=== PATIENT | female | born 1975 | race African-American/Black ===

== ENCOUNTER 2018-12-28 10:30 | Emergency (ER) | payer SELFPAY ==
[~2018-12-28] VITALS: Ht 172.7 cm; Wt 102.5 kg
--- OUTSIDE RECORDS SUMMARY | 2018-12-28 10:33 | XMS REPORT | Summary of Care ---
Author Author [facility] Organization [facility] Address Unknown Phone Unavailable Encounter HQ Geoff(FIN) [phone] Date(s): 08/15/18 - 08/15/18 [facility] [address] [place] [address]- [phone] Encounter Diagnosis Acute chest pain (Discharge Diagnosis) - 08/15/18 Discharge Disposition: Home or Self Care Attending Physician: Suraj Campos MD Vital Signs 1 2 3 Most recent to oldest [Reference Range]: 172.72 cm (08/15/18 7:31 AM) Height 98.1 DegF (08/15/18 7:31 AM) Temperature Oral [96.4-99.1 DegF] 160/89 mmHg *HI* (08/15/18 11:15 AM) 144/98 mmHg *HI* (08/15/18 9:42 AM) 159/102 mmHg *HI* (08/15/18 7:31 AM) Blood Pressure [90-140/60-90 mmHg] 31 BRMIN *HI* (08/15/18 11:15 AM) 22 BRMIN *HI* (08/15/18 9:42 AM) 23 BRMIN *HI* (08/15/18 8:36 AM) Respiratory Rate [14-20 BRMIN] 68 bpm (08/15/18 7:31 AM) Peripheral Pulse Rate [60-100 bpm] 107.273 kg (08/15/18 7:31 AM) Weight 35.96 m2 (08/15/18 7:31 AM) Body Mass Index Problem List No data available for this section Allergies, Adverse Reactions, Alerts Substance Reaction Severity Status shellfish1 Moderate Active codeine Active iodine Mild Active 1Patient state she swells up and her airway closes when eating shellfish i.e shrimp and crab Medications GI cocktail (aluminum hydroxide/magnesium hydroxide/lidocaine/simethicone) 30 mL, Route: PO, Drug Form: SUSP, Dosing Weight 107.273, kg, ONCE, STAT, Start date: 08/15/18 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 Cocktail - aluminum hydroxide/magnesium hydroxide/lidocaine/simethic one Start Date: 08/15/18 Stop Date: 08/15/18 Status: Completed ondansetron 4 mg, 2 mL, Route: IVP, Drug form: INJ, ONCE, Dosing Weight 107.273, kg, Priorit y: STAT, Start date: 08/15/18 7:54:00 MODELING TEACHER, Stop date: 08/15/18 7:54:00 MODELING TEACHER Notes: (Same as: Zofran) MEDICATION WASTE Product Size: 4 mgProduct Was samuel: ___ mg Start Date: 08/15/18 Stop Date: 08/15/18 Status: Completed Saline Flush 0.9% 10 mL, Route: IVP, Drug Form: INJ, Dosing Weight 107.273, kg, PRN, PRN Line Flus h, Start date: 08/15/18 7:54:00 MODELING TEACHER, Duration: 30 day, Stop date: 09/14/18 7:53: 00 MODELING TEACHER Notes: (Same as: BD Posiflush) Start Date: 08/15/18 Stop Date: 08/15/18 Status: Discontinued Results ELECTROLYTES Most recent to 1 oldest [Reference Range]: Sodium Lvl [135-145 139 mEq/L mEq/L] (08/15/18 8:54 AM) Potassium Lvl 3.1 mEq/L [3.5-5.1 mEq/L] *LOW* (08/15/18 8:54 AM) Chloride Lvl [95-109 106 mEq/L mEq/L] (08/15/18 8:54 AM) CO2 [24-32 mEq/L] 29 mEq/L (08/15/18 8:54 AM) AGAP [10.0-20.0 7.1 mEq/L mEq/L] *LOW* (08/15/18 8:54 AM) CHEM PANEL Most recent to 1 oldest [Reference Range]: Creatinine Lvl 1.07 mg/dL [0.50-1.40 mg/dL] (08/15/18 8:54 AM) eGFR 74 mL/min/1.73m2 1 *NA* (08/15/18 8:54 AM) BUN [7-22 mg/dL] 7 mg/dL (08/15/18 8:54 AM) B/C Ratio [6-25] 7 (08/15/18 8:54 AM) Glucose Lvl [70-99 126 mg/dL mg/dL] *HI* (08/15/18 8:54 AM) Total Protein 8.3 g/dL [6.4-8.4 g/dL] (08/15/18 8:54 AM) Albumin Lvl [3.5-5.0 3.6 g/dL g/dL] (08/15/18 8:54 AM) Globulin [2.7-4.2 4.7 g/dL g/dL] *HI* (08/15/18 8:54 AM) A/G Ratio [0.7-1.6] 0.8 (08/15/18 8:54 AM) Calcium Lvl 9.0 mg/dL [8.5-10.5 mg/dL] (08/15/18 8:54 AM) ALT [0-65 unit/L] 31 unit/L (08/15/18 8:54 AM) AST [0-37 unit/L] 19 unit/L (08/15/18 8:54 AM) Alk Phos [39-136 108 unit/L unit/L] (08/15/18 8:54 AM) Bili Total [0.2-1.3 0.3 mg/dL mg/dL] (08/15/18 8:54 AM) 1Result Comment: The eGFR is calculated using the CKD-EPI formula. In most young, healthy individuals the eGFR will be >90 mL/min/1.73m2. The eGFR declines with age. An eGFR of 60-89 may be normal in some populations, particularly the elderly, for whom the CKD-EPI formula has not been extensively validated. Use of the eGFR is not recommended in the following populations: Individuals with unstable creatinine concentrations, including patients and those with serious co-morbid conditions. Patients with extremes in muscle mass or diet. The data above are obtained from the National Kidney Disease Education Program ( NKDEP) which additionally recommends that when the eGFR is used in patients with extremes of body mass index for purposes of drug dosing, the eGFR should be mul tiplied by the estimated BMI. CARDIAC ENZYMES Most recent to 1 oldest [Reference Range]: Total CK [12-191 321 unit/L unit/L] *HI* (08/15/18 8:54 AM) Troponin-I <0.02 ng/mL [0.00-0.40 ng/mL] (08/15/18 8:54 AM) HEMATOLOGY Most recent to 1 oldest [Reference Range]: WBC [3.7-10.4 K/CMM] 8.5 K/CMM (08/15/18 8:54 AM) RBC [4.20-5.40 4.88 M/CMM M/CMM] (08/15/18 8:54 AM) Hgb [12.0-16.0 g/dL] 13.0 g/dL (08/15/18 8:54 AM) Hct [36.0-48.0 %] 40.3 % (08/15/18 8:54 AM) MCV [80.0-98.0 fL] 82.6 fL (08/15/18 8:54 AM) MCH [27.0-31.0 pg] 26.6 pg *LOW* (08/15/18 8:54 AM) MCHC [32.0-36.0 32.2 g/dL g/dL] (08/15/18 8:54 AM) RDW [11.5-14.5 %] 19.1 % *HI* (08/15/18 8:54 AM) MPV [7.4-10.4 fL] 9.8 fL (08/15/18 8:54 AM) Platelet [133-450 253 K/CMM K/CMM] (08/15/18 8:54 AM) Segs [45.0-75.0 %] 85.6 % *HI* (08/15/18 8:54 AM) Lymphocytes 10.7 % [20.0-40.0 %] *LOW* (08/15/18 8:54 AM) Monocytes [2.0-12.0 3.1 % %] (08/15/18 8:54 AM) Eosinophils [0.0-4.0 0.1 % %] (08/15/18 8:54 AM) Basophils [0.0-1.0 0.5 % %] (08/15/18 8:54 AM) Neutrophils # 7.3 K/CMM [1.5-8.1 K/CMM] (08/15/18 8:54 AM) Lymphocytes # 0.9 K/CMM [1.0-5.5 K/CMM] *LOW* (08/15/18 8:54 AM) Monocytes # [0.0-0.8 0.3 K/CMM K/CMM] (08/15/18 8:54 AM) Immunizations Given and Recorded Vaccine Date Status Refusal Reason pneumococcal 23-valent vaccine1 07/11/12 Given 1Admin Note: Patient only recalled year of pneumococcal vaccine in 2012 does not remember exact month/day. Procedures No data available for this section Social History Social History Type Response Substance Abuse Use: Current. Type: Marijuana. IV drug use: No. Drug use interferes with work/home: No. Ready to change: No. Household substance abuse concerns: No.1 Employment/School Status: Employed. 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 Alcohol Current, Type Beer, Wine. Previous treatment: None.2 Smoking Status Current every day smoker; Exposure to Tobacco Smoke None; Cigarette Smoking Last 365 Days No; Reg Smoking Cessation Counseling No3 entered on: 08/15/18 1Marijuana everyday use 2Occasional alcohol juse 3Patient state she smokes marijuana everyday Assessment and Plan No data available for this section
--- OUTSIDE RECORDS SUMMARY | 2018-12-28 10:33 | XMS REPORT | Summary of Care ---
Author Author [facility] Organization [facility] Address Unknown Phone Unavailable Encounter HQ Geoff(YOLY) [phone] Date(s): 09/30/17 - 09/30/17 [facility] [address] [place] [address]- Encounter Diagnosis Minor head injury (Discharge Diagnosis) - 09/30/17 Unspecified injury of head, initial encounter (Final) - 10/06/17 Other fall on same level, initial encounter (Final) - Discharge Disposition: Home or Self Care Attending Physician: Herb Rolon MD Vital Signs 1 2 3 Most recent to oldest [Reference Range]: 172.72 cm (09/30/17 10:45 AM) Height 97.9 DegF (09/30/17 12:44 PM) 99.1 DegF (09/30/17 10:45 AM) Temperature Oral [96.4-99.1 DegF] 137/85 mmHg (09/30/17 12:44 PM) 142/97 mmHg *HI* (09/30/17 11:41 AM) 129/83 mmHg (09/30/17 10:45 AM) Blood Pressure [90-140/60-90 mmHg] 18 BRMIN (09/30/17 12:44 PM) 18 BRMIN (09/30/17 11:41 AM) 15 BRMIN (09/30/17 10:45 AM) Respiratory Rate [14-20 BRMIN] 73 bpm (09/30/17 12:44 PM) 71 bpm (09/30/17 11:41 AM) 91 bpm (09/30/17 10:45 AM) Peripheral Pulse Rate [60-100 bpm] 97.727 kg (09/30/17 10:45 AM) Weight 32.76 m2 (09/30/17 10:45 AM) Body Mass Index Problem List No data available for this section Allergies, Adverse Reactions, Alerts Substance Reaction Severity Status shellfish1 Moderate Active codeine Active iodine Mild Active 1Patient state she swells up and her airway closes when eating shellfish i.e shrimp and crab Medications Fioricet 300 mg-50 mg-40 mg oral capsule 1 cap, PO, Q4H, PRN PRN Headache, Do not exceed 6 capsules in 24 hours, X 3 day, # 30 cap, 0 Refill(s) Start Date: 09/30/17 Stop Date: 10/03/17 Status: Completed Results No data available for this section Immunizations Given and Recorded Vaccine Date Status [...] Employment/School Status: Employed. 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 Previous treatment: None.2 Smoking Status Current every day smoker; Exposure to Tobacco Smoke None; Cigarette Smoking Last 365 Days No; Reg Smoking Cessation Counseling No3 entered on: 09/30/17 1Marijuana everyday use 2Occasional alcohol juse 3Patient state she smokes marijuana everyday Assessment and Plan No data available for this section
--- OUTSIDE RECORDS SUMMARY | 2018-12-28 10:33 | XMS REPORT | Continuity of Care Document ---
Author Author [facility] Interface Address Unknown Phone Unavailable Problems Problem Status Onset Date Classification Date Reported Comments Source Acute chest pain 08/15/2018 08/18/[address] [facility] CHEST PAIN,VOMIT Active 08/15/[address] [facility] CHEST PAIN,VOMIT Active 08/15/[address] [facility] Unspecified injury of head, initial encounter 10/07/2017 01/06/[address] [facility] Minor head injury 09/30/2017 01/06/[address] [facility] FALL KNOT ON HEAD Active 09/29/[address] [facility] Discharge Diagnosis: Nausea & vomiting 02/19/2015 02/22/[address] [facility] Discharge Diagnosis: Abdominal discomfort, epigastric 02/19/2015 02/22/[address] [facility] HIGH BLOOD PRESSURE, CHEST PAIN, NUMBNES Active 02/19/[address] [facility] NAUSEA, VOMITING Active 11/11/[address] [facility] CHOLECYSTITIIS; HYPOKALEMIA Active 11/11/[address] [facility] Other fall on same level, initial encounter 01/06/[address] [facility] CHOLECYSTITIS NOS Active [facility] Medications Medication Details Route Status Patient Instructions Ordering Provider Order Date Source GI cocktail (aluminum hydroxide/magnesium hydroxide/lidocaine/simethicone) 30 mL, Route: PO, Drug Form: SUSP, Dosing Weight 107.273, kg, ONCE, STAT, Start date: 08/15/18 7:55:00 CANCELLATION CLERK, Stop date: 08/15/18 7:55:00 CSTNotes: G.I. Cocktail - aluminum hydroxide/magnesium hydroxid e/lidocaine/simethicone Inactive 08/15/[address] [facility] Ondansetron 4 mg, 2 mL, Route: IVP, Drug form: INJ, ONCE, Dosing Weight 107.273, kg, Priority: STAT, Start date: 08/15/18 7:54:00 CANCELLATION CLERK, Stop date: 08/15/18 7:54:00 CSTNotes: (Same as: Madisyn) MEDICATION WASTE Product Size: 4 mg Product Wasted: ___ mg Inactive 08/15/2018 [facility] Saline Flush 0.9% 10 mL, Route: IVP, Drug Form: INJ, Dosing Weight 107.273, kg, PRN, PRN Line Flush, Start date: 08/15/18 7:54:00 CANCELLATION CLERK, Duration: 30 day, Stop date: 09/14/18 7:53:00 CSTNotes: (Same as: BD Posiflush) Inactive 08/15/2018 [facility] Acetaminophen 300 MG / butalbital 50 MG / Caffeine 40 MG Oral Capsule [Fioricet] 1 cap, PO, Q4H, PRN PRN Headache, Do not exceed 6 capsules in 24 hours, X 3 day, # 30 cap, 0 Refill(s) No Longer Active 09/30/2017 [facility] tramadol hydrochloride 50 MG Oral Tablet 50 mg=1 tab, PO, Q6H, PRN Pain, X 5 day, # 20 tab, 0 Refill(s) Active 02/19/2015 [facility] Famotidine 20 MG Oral Tablet [Pepcid] 20 mg=1 tab, PO, BID, # 60 tab, 0 Refill(s) Active 02/19/2015 [facility] Ondansetron 4 MG Oral Tablet [Zofran] 4 mg=1 tab, PO, Q8H, PRN Nausea/vomiting, X 5 day, # 15 tab, 0 Refill(s) Active 02/19/2015 [facility] GI cocktail 30 mL, Route: PO, Drug Form: SUSP, Dosing Weight 73.636, kg, ONCE, STAT, Start date: 02/19/15 14:02:00, Stop date: 02/19/15 14:02:00Notes: G.I. Cocktail=antacid with simethicone 22.5 mL - lidocaine v iscous 7.5 mL Inactive 02/19/2015 [facility] Morphine 4 mg, 1 mL, Route: IVP, Drug form: INJ, ONCE, Dosing Weight 73.636, kg, Priority: STAT, Start date: 02/19/15 11:37:00, Stop date: 02/19/15 11:37:00Notes: (Same as:MORPhine Sulfate) Inactive 02/19/2015 [facility] Albuterol 0.83 MG/ML Inhalant Solution 2.49 mg, 3 mL, Route: NEB, Drug form: SOLN, ONCE, Dosing Weight 73.636, kg, Priority: STAT, Start date: 02/19/15 11:37:00, Stop date: 02/19/15 11:37:00Notes: SEE RT DOCUMENTATION (Same as: Proventil) Inactive 02/19/[address] [facility] Saline Flush 0.9% 10 mL, Route: IVP, Drug Form: INJ, Dosing Weight 73.636, kg, PRN, PRN Line Flush, Start date: 02/19/15 9:24:00, Duration: 30 day, Stop date: 03/21/15 9:23:00Notes: Same as: BD Posiflush Sterile Inactive 02/19/[address] [facility] Sodium Chloride 0.154 MEQ/ML Injectable Solution 1,000 mL, 1000 ml/hr, Infuse Over: 1 hr, Route: IV, 1,000, Drug form: INJ, ONCE, Priority: STAT, Dosing Weight 73.636 kg, Start date: 02/19/15 9:24:00, Duration: 1 doses or times, Stop date: 02/19/15 9:24:00 Inactive 02/19/[address] [facility] Ketorolac 30 mg, 1 mL, Route: IVP, Drug form: INJ, ONCE, Dosing Weight 73.636, kg, Priority: STAT, Start date: 02/19/15 9:24:00, Stop date: 02/19/15 9:24:00Notes: (Same as:Toradol) IV bolus must be given >15 seconds. Give IM administration slowly and deeply into the muscle. Not for use > 4 days MEDICATION WASTE Product Size: 30 mg Product Wasted: ___ mg Inactive 02/19/[address] [facility] Ondansetron 4 mg, 2 mL, Route: IVP, Drug form: INJ, ONCE, Dosing Weight 73.636, kg, Priority: STAT, Start date: 02/19/15 9:24:00, Stop date: 02/19/15 9:24:00Notes: (Same as: Zofran) MEDICATION WASTE Pr oduct Size: 4 mg Product Wasted: ___ mg Inactive 02/19/[address] [facility] Famotidine 20 mg, 2 mL, Route: IVP, Drug form: INJ, ONCE, Dosing Weight 73.636, kg, Priority: STAT, Start date: 02/19/15 9:24:00, Stop date: 02/19/15 9:24:00Notes: (Same as: Pepcid) Can be dilute in 5-10cc NS IVP: Slow IV push over at least 2 minutes. Inactive 02/19/2015 [facility] Dulcolax Laxative 20 mg, 4 tab, Route: PO, Drug form: ECTAB, Daily, Dosing Weight 81.847, kg, Priority: STAT, Start date: 11/13/14 11:47:00, Duration: 30 day, Stop date: 12/13/14 9:00:00Notes: (Same As: Dulcolax, Correct ol) (Do Not Crush) "Do Not Crush" Inactive 11/13/2014 [facility] NS + KCL 20mEq/L 1000ml (Premix) 1000 mL 1,000 mL, Rate: 125 ml/hr, Infuse over: 8 hr, Route: IV, Dosing Weight 78.182 kg, Total Volume: 1,000, Start date: 11/11/14 21:57:00, Duration: 30 day, Stop date: 12/11/14 21:56:00 Inactive 11/12/2014 [facility] Ciprofloxacin 2 MG/ML Injectable Solution 400 mg, 200 mL, Route: IVPB, Drug form: INJ, ABXQ8H, Dosing Weight 78.182, kg, Priority: STAT, Start date: 11/11/14 21:56:00, Duration: 30 day, Stop date: 12/11/14 13:56:00Notes: Do not refrigerate No Longer Active 11/12/2014 [facility] Metronidazole 500 mg, 100 mL, Route: IVPB, Drug form: INJ, ABXQ8H, Dosing Weight 78.182, kg, Priority: STAT, Start date: 11/11/14 21:56:00, Duration: 30 day, Stop date: 12/11/14 13:56:00Notes: (Same as: Flagyl) Avoid alcohol. No Longer Active 11/12/2014 [facility] NS + KCL 40mEq/L 1000ml (Premix) 1,000 mL 1,000 mL, Rate: 125 ml/hr, Infuse over: 8 hr, Route: IV, Dosing Weight 78.182 kg, Total Volume: 1,000, Start date: 11/11/14 18:39:00, Duration: 30 day, Stop date: 12/11/14 18:38:00Notes: PREMIX IV - Do Not Alter No Longer Active 11/11/2014 [facility] Pepcid 20 mg, 2 mL, Route: IVP, Drug form: INJ, [id number], Start date: 11/11/14 18:00:00, Duration: 30 day, Stop date: 12/11/14 6:00:00Notes: (Same as: Pepcid) Can be dilute in 5-10cc NS IVP: Slow IV push ov er at least 2 minutes. No Longer Active 11/11/2014 [facility] Pepcid 10 mg, Route: IV, Q24H, Dosing Weight 78.182, kg, Priority: NOW, Start date: 11/11/14 9:46:00, Duration: 30 day, Stop date: 12/10/14 9:46:00, Special Instruc tions: Inactive 11/11/2014 [facility] Morphine 4 mg, 1 mL, Route: IV, Drug form: INJ, Q4H, Dosing Weight 78.182, kg, PRN Pain Score 6-10, Start date: 11/11/14 9:45:00, Duration: 30 day, Stop date: 12/11/14 9:44:00Notes: (Same as:MORPhine Sulfate) No Longer Active 11/11/2014 [facility] Ondansetron 4 mg, 2 mL, Route: IVP, Drug form: INJ, Q8H, Dosing Weight 78.182, kg, PRN Nausea & Vomiting, Start date: 11/11/14 9:43:00, Duration: 30 day, Stop date: 12/11/14 9:42:00Notes: (Same as: Zofran) MEDICATION WASTE Product Size: 4 mg Product Wasted: ___ mg No Longer Active 11/11/2014 [facility] potassium chloride 40 mEq, 2 tab, Route: PO, Drug form: ERTAB, ONCE, Dosing Weight 78.182, kg, Priority: STAT, Start date: 11/11/14 7:28:00, Stop date: 11/11/14 7:28:00Notes: (Same as: K-Dur 20) "Do Not Crush" With food and full glass of water Inactive 11/11/2014 [facility] Morphine 4 mg, 1 mL, Route: IVP, Drug form: INJ, ONCE, Dosing Weight 78.182, kg, Priority: STAT, Start date: 11/11/14 6:27:00, Stop date: 11/11/14 6:27:00Notes: (Same as:MORPhine Sulfate) Inactive 11/11/2014 [facility] Zofran 4 mg, 2 mL, Route: IVP, Drug form: INJ, ONCE, Dosing Weight 78.182, kg, Start date: 11/11/14 6:20:00, Stop date: 11/11/14 6:20:00Notes: (Same as: Zofran) MEDICATION WASTE Product Size: 4 mg Product Wasted: ___ mg Inactive 11/11/2014 [facility] Sodium Chloride 0.154 MEQ/ML Injectable Solution 1,000 mL, 1,000 ml/hr, Infuse Over: 1 hr, Route: IV, 1,000, Drug form: INJ, ONCE, Priority: STAT, Dosing Weight 78.182 kg, Start date: 11/11/14 6:20:00, Duration: 1 doses or times, Stop date: 11/11/14 6:20:00 Inactive 11/11/2014 [facility] Allergies, Adverse Reactions, Alerts Substance Category Reaction Severity Reaction type Status Date Reported Comments Source shellfish<sup>1</sup> Assertion Moderate Food allergy Active Patient state she swells up and her airway closes when eating shellfish i.e shrimp and crab [facility] codeine Assertion Drug allergy Active [facility] iodine Assertion Mild Drug allergy Active [facility] Immunizations Immunization Date Given Site Status Last Updated Comments Source pneumococcal 23-valent vaccine<sup>1</sup> 07/11/2012 completed [facility] Admin Note: Patient only recalled year of pneumococcal vaccine in 2012 does not remember exact month/day. [facility] Results Order Name Results Value Reference Range Date Interpretation Comments Source CARDIAC ENZYMES Troponin-I null 0.00 - 0.40 08/15/[address] [facility] CARDIAC ENZYMES Total CK 321 unit/L 12 - 191 08/15/[address] [facility] CHEM PANEL B/C Ratio 7 6 - 25 08/15/[address] [facility] CHEM PANEL Globulin 4.7 g/dL 2.7 - 4.2 08/15/[address] [facility] CHEM PANEL A/G Ratio 0.8 0.7 - 1.6 08/15/[address] [facility] CHEM PANEL AGAP 7.1 meq/L 10.0 - 20.0 08/15/[address] [facility] CHEM PANEL eGFR 74 mL/min/1.73m2 08/15/2018 Result Comment: The eGFR is calculated using the [...] from the National Kidney Disease Education Program (NKDEP) which additionally recommends that when the eGFR is used in patients with extremes of body mass index for purposes of drug dosing, the eGFR should be multiplied by the estimated BMI. [facility] CHEM PANEL Bili Total 0.3 mg/dL 0.2 - 1.3 08/15/[address] [facility] CHEM PANEL Calcium Lvl 9.0 mg/dL 8.5 - 10.5 08/15/[address] [facility] CHEM PANEL CO2 29 meq/L 24 - 32 08/15/[address] [facility] CHEM PANEL AST 19 unit/L 0 - 37 08/15/[address] [facility] CHEM PANEL Total Protein 8.3 g/dL 6.4 - 8.4 08/15/[address] [facility] CHEM PANEL Chloride Lvl 106 meq/L 95 - 109 08/15/[address] [facility] CHEM PANEL Albumin Lvl 3.6 g/dL 3.5 - 5.0 08/15/[address] [facility] CHEM PANEL ALT 31 unit/L 0 - 65 08/15/[address] [facility] CHEM PANEL Alk Phos 108 unit/L 39 - 136 08/15/[address] [facility] CHEM PANEL Glucose Lvl 126 mg/dL 70 - 99 08/15/[address] [facility] CHEM PANEL BUN 7 mg/dL 7 - 22 08/15/[address] [facility] CHEM PANEL Creatinine Lvl 1.07 mg/dL 0.50 - 1.40 08/15/[address] [facility] CHEM PANEL Sodium Lvl 139 meq/L 135 - 145 08/15/[address] [facility] CHEM PANEL Potassium Lvl 3.1 meq/L 3.5 - 5.1 08/15/[address] [facility] HEMATOLOGY Hct 40.3 % 36.0 - 48.0 08/15/[address] [facility] HEMATOLOGY RBC 4.88 M/CMM 4.20 - 5.40 08/15/[address] [facility] HEMATOLOGY MCV 82.6 fL 80.0 - 98.0 08/15/[address] [facility] HEMATOLOGY Hgb 13.0 g/dL 12.0 - 16.0 08/15/[address] [facility] HEMATOLOGY MCH 26.6 pg 27.0 - 31.0 08/15/[address] [facility] HEMATOLOGY WBC 8.5 K/CMM 3.7 - 10.4 08/15/[address] [facility] HEMATOLOGY RDW 19.1 % 11.5 - 14.5 08/15/[address] [facility] HEMATOLOGY Platelet 253 K/CMM 133 - 450 08/15/[address] [facility] HEMATOLOGY MCHC 32.2 g/dL 32.0 - 36.0 08/15/[address] [facility] HEMATOLOGY MPV 9.8 fL 7.4 - 10.4 08/15/[address] [facility] HEMATOLOGY Basophils 0.5 % 0.0 - 1.0 08/15/[address] [facility] HEMATOLOGY Lymphocytes # 0.9 K/CMM 1.0 - 5.5 08/15/[address] [facility] HEMATOLOGY Neutrophils # 7.3 K/CMM 1.5 - 8.1 08/15/[address] [facility] HEMATOLOGY Monocytes # 0.3 K/CMM 0.0 - 0.8 08/15/[address] [facility] HEMATOLOGY Eosinophils 0.1 % 0.0 - 4.0 08/15/[address] [facility] HEMATOLOGY Monocytes 3.1 % 2.0 - 12.0 08/15/[address] [facility] HEMATOLOGY Lymphocytes 10.7 % 20.0 - 40.0 08/15/[address] [facility] HEMATOLOGY Segs 85.6 % 45.0 - 75.0 08/15/[address] [facility] Chest 1view DX Chest 1view DX PROCEDURE: Chest, AP on 08/15/2018 at 0800 hours. INDICATION: Chest pain. COMPARISON: Chest radiograph dated 02/19/2015. FINDINGS: Support tubes, catheters, devices: None. There are no visualized pleural effusions. The visualized portions of the lungs are clear with normal pulmonary vasculature. The mediastinal silhouette and gen appear normal. No evidence for an acute bony abnormality. IMPRESSION: 1. No evidence for an acute cardiopulmonary process. SL: [id number] 08/15/2018 - - Read by: Michael Arguelles MD Dictated Date/time: 08/15/18 08:09 Electronically Signed by: Michael Arguelles MD 08/15/18 08:[address] [facility] Spine cervical 2 or 3 view DX Spine cervical 2 or 3 view DX Study: Cervical spine, 3 views Clinical Indication: - neck pain; post fall yesterday Comparison: None FINDINGS: AP, lateral and odontoid images demonstrate a straightened cervical curve. No fracture is evident. Intervertebral disc spaces are maintained. There are tiny marginal osteophytes at C5-C6. Prevertebral soft tissues are normal. IMPRESSION: No acute abnormality. Straightened cervical curve. SL: [id number] 09/30/2017 - - Read by: Gabriel Rajan MD Dictated Date/time: 09/30/17 11:10 Electronically Signed by: Gabriel Rajan MD 09/30/17 11:[address] [facility] Brain wo contrast CT Brain wo contrast CT EXAM: CT BRAIN WITHOUT CONTRAST DATE: 09/30/2017 10:50 AM CDT INDICATION: - headaches/ dizziness ADDITIONAL INFORMATION AND CT DLP: 1029.93 mGy-cm. COMPARISON: None. TECHNIQUE: Routine axial CT images of the brain were obtained. IV contrast: None. FINDINGS: Non-contrast images of the head demonstrate no edema, hemorrhage, mass lesion or other acute intracranial abnormality. Ayala-white matter distinction is preserved. The ventricles are normal. The basal cisterns and sulci are normal in size. Mild chronic inflammatory change of the paranasal sinus. Partial opacification of the mastoid air cells. IMPRESSION: 1. No definite acute infarct or intracranial hemorrhage detected. If there is further concern for intracranial pathology or acute stroke, MRI of the brain may be performed for complete assessment. SL: [id number] 09/30/2017 - - Read by: Chadwick Mcnulty MD Dictated Date/time: 09/30/17 11:02 Electronically Signed by: Chadwick Mcnulty MD 09/30/17 11:[address] [facility] URINE AND STOOL UA Sq Epi Few /LPF Few /LPF 02/19/[address] [facility] URINE AND STOOL UA WBC 0-2 /HPF None Seen /HPF 02/19/[address] [facility] URINE AND STOOL UA RBC 0-2 /HPF 0 - 2 02/19/[address] [facility] URINE AND STOOL UA Bacteria Few /HPF None Seen /HPF 02/19/[address] [facility] URINE AND STOOL UA Nitrite Negative (02/19/15 2:14 PM) Negative 02/19/[address] [facility] URINE AND STOOL UA Leuk Est Negative (02/19/15 2:14 PM) Negative 02/19/[address] [facility] URINE AND STOOL Micro? Performed (02/19/15 2:14 PM) 02/19/[address] [facility] URINE AND STOOL UA Bili Small 2 *ABN* (02/19/15 2:14 PM) Negative 02/19/2015 Result Comment: Interpret positive bilirubin results with caution. Confirmatory testing not possible due to the unavailability of reagent. Correlation with serum chemistry results recommended. [facility] URINE AND STOOL UA Urobilinogen 1.0 EU/dL 0.1 - 1.0 02/19/[address] [facility] URINE AND STOOL UA Blood Trace *ABN* (02/19/15 2:14 PM) Negative 02/19/[address] [facility] URINE AND STOOL UA Protein Trace *ABN* (02/19/15 2:14 PM) Negative 02/19/[address] [facility] URINE AND STOOL UA Glucose Negative (02/19/15 2:14 PM) Negative 02/19/[address] [facility] URINE AND STOOL UA Ketones 40 mg/dL Negative mg/dL 02/19/[address] [facility] URINE AND STOOL UA Mucus None Seen (02/19/15 2:14 PM) None Seen 02/19/[address] [facility] URINE AND STOOL UA Turbidity Clear (02/19/15 2:14 PM) Clear 02/19/[address] [facility] URINE AND STOOL UA Spec Grav 1.025 <=1.030 02/19/[address] [facility] URINE AND STOOL UA pH 6.0 5.0 - 8.0 02/19/[address] [facility] URINE AND STOOL UA Color Yellow *NA* (02/19/15 2:14 PM) Yellow 02/19/[address] [facility] CHEM PANEL eGFR 73 mL/min/1.73m2 02/19/2015 Result Comment: The eGFR is calculated using the [...] from the National Kidney Disease Education Program (NKDEP) which additionally recommends that when the eGFR is used in patients with extremes of body mass index for purposes of drug dosing, the eGFR should be multiplied by the estimated BMI. [facility] CHEM PANEL ALT 26 unit/L 0 - 65 02/19/[address] [facility] CHEM PANEL Albumin Lvl 3.7 g/dL 3.5 - 5.0 02/19/[address] [facility] CHEM PANEL Alk Phos 82 unit/L 39 - 136 02/19/[address] [facility] CHEM PANEL Bili Total 0.6 mg/dL 0.2 - 1.3 02/19/[address] [facility] CHEM PANEL AST 19 unit/L 0 - 37 02/19/[address] [facility] CHEM PANEL Glucose Lvl 85 mg/dL 70 - 99 02/19/[address] [facility] CHEM PANEL Sodium Lvl 141 meq/L 135 - 145 02/19/[address] [facility] CHEM PANEL Creatinine Lvl 1.1 mg/dL 0.5 - 1.4 02/19/[address] [facility] CHEM PANEL BUN 13 mg/dL 7 - 22 02/19/[address] [facility] CHEM PANEL Chloride Lvl 106 meq/L 95 - 109 02/19/[address] [facility] CHEM PANEL CO2 21 meq/L 24 - 32 02/19/[address] [facility] CHEM PANEL Potassium Lvl 3.6 meq/L 3.5 - 5.1 02/19/[address] [facility] CHEM PANEL Total Protein 7.6 g/dL 6.4 - 8.4 02/19/[address] [facility] CHEM PANEL Calcium Lvl 8.8 mg/dL 8.5 - 10.5 02/19/[address] [facility] CHEM PANEL B/C Ratio 12 6 - 25 02/19/[address] [facility] CHEM PANEL Globulin 3.9 g/dL 2.0 - 4.0 02/19/[address] [facility] CHEM PANEL A/G Ratio 0.9 0.7 - 1.6 02/19/[address] [facility] CHEM PANEL AGAP 17.6 meq/L 10.0 - 20.0 02/19/[address] [facility] CHEM PANEL Lipase Lvl 87 unit/L 73 - 393 02/19/[address] [facility] HEMATOLOGY Eosinophils # 0.0 K/CMM 0.0 - 0.5 02/19/[address] [facility] HEMATOLOGY Basophils # 0.1 K/CMM 0.0 - 0.2 02/19/[address] [facility] HEMATOLOGY Monocytes # 0.9 K/CMM 0.0 - 0.8 02/19/[address] [facility] HEMATOLOGY Lymphocytes # 2.0 K/CMM 1.0 - 5.5 02/19/[address] [facility] HEMATOLOGY Basophils 0.8 % 0.0 - 1.0 02/19/[address] [facility] HEMATOLOGY Segs-Bands # 8.3 K/CMM 1.5 - 8.1 02/19/[address] [facility] HEMATOLOGY Monocytes 7.9 % 2.0 - 12.0 02/19/[address] [facility] HEMATOLOGY Eosinophils 0.1 % 0.0 - 4.0 02/19/[address] [facility] HEMATOLOGY Segs 73.3 % 45.0 - 75.0 02/19/[address] [facility] HEMATOLOGY Lymphocytes 17.9 % 20.0 - 40.0 02/19/[address] [facility] HEMATOLOGY MPV 10.7 fL 7.4 - 10.4 02/19/[address] [facility] HEMATOLOGY Platelet 209 K/CMM 133 - 450 02/19/[address] [facility] HEMATOLOGY MCV 85.8 fL 80.0 - 98.0 02/19/[address] [facility] HEMATOLOGY MCH 28.7 pg 27.0 - 31.0 02/19/[address] [facility] HEMATOLOGY MCHC 33.4 g/dL 32.0 - 36.0 02/19/[address] [facility] HEMATOLOGY RDW 17.7 % 11.5 - 14.5 02/19/[address] [facility] HEMATOLOGY WBC 11.4 K/CMM 3.7 - 10.4 02/19/[address] [facility] HEMATOLOGY RBC 4.54 M/CMM 4.20 - 5.40 02/19/[address] [facility] HEMATOLOGY Hgb 13.0 g/dL 12.0 - 16.0 02/19/[address] [facility] HEMATOLOGY Hct 39.0 % 36.0 - 48.0 02/19/[address] [facility] IMMUNOLOGY CDC HIV 4th GEN Negative (02/19/15 10:37 AM) Negative 02/19/[address] [facility] CARDIAC ENZYMES CK-MB INDEX 0.29 0.0 - 2.5 02/19/[address] [facility] CARDIAC ENZYMES CK MB 0.6 ng/mL 0.5 - 3.6 02/19/[address] [facility] CARDIAC ENZYMES Total CK 206 unit/L 12 - 191 02/19/[address] [facility] CARDIAC ENZYMES Troponin-I <0.015 ng/mL 0.00 - 0.40 02/19/[address] [facility] ENDOCRINOLOGY S Preg Negative (02/19/15 10:34 AM) Negative 02/19/[address] [facility] Abdomen acute series w chest 1 view DX Abdomen acute series w chest 1 view DX Acute abdominal series with chest one view: Exam reason: Abdominal pain, acute See Clinic Indication Chest one view demonstrates no acute cardiopulmonary process and no pneumoperitoneum. Abdomen 2 view demonstrates no small bowel dilatation or air-fluid level. The bowel gas pattern is unremarkable. There is no pathologic abdominal calcification noted. Small amount of retained fecal material is present. Vascular calcification pelvis. SL:12 02/19/2015 - - Read by: Rusty Liz MD Dictated Date/time: 02/19/15 10:09 Electronically Signed by: Rusty Liz MD 02/19/15 10:[address] [facility] HEMATOLOGY Basophils # 0.0 K/CMM 0.0 - 0.2 11/13/[address] [facility] HEMATOLOGY Lymphocytes # 2.1 K/CMM 1.0 - 5.5 11/13/[address] [facility] HEMATOLOGY Monocytes # 0.6 K/CMM 0.0 - 0.8 11/13/[address] [facility] HEMATOLOGY Eosinophils # 0.2 K/CMM 0.0 - 0.5 11/13/[address] [facility] HEMATOLOGY Monocytes 8.4 % 2.0 - 12.0 11/13/[address] [facility] HEMATOLOGY Lymphocytes 28.4 % 20.0 - 40.0 11/13/[address] [facility] HEMATOLOGY Segs-Bands # 4.4 K/CMM 1.5 - 8.1 11/13/[address] [facility] HEMATOLOGY Basophils 0.6 % 0.0 - 1.0 11/13/[address] [facility] HEMATOLOGY Eosinophils 2.1 % 0.0 - 4.0 11/13/[address] [facility] HEMATOLOGY Segs 60.5 % 45.0 - 75.0 11/13/[address] [facility] HEMATOLOGY MPV 10.6 fL 7.4 - 10.4 11/13/[address] [facility] HEMATOLOGY RDW 17.1 % 11.5 - 14.5 11/13/[address] [facility] HEMATOLOGY MCHC 33.2 g/dL 32.0 - 36.0 11/13/[address] [facility] HEMATOLOGY Platelet 169 K/CMM 133 - 450 11/13/[address] [facility] HEMATOLOGY Hct 33.8 % 36.0 - 48.0 11/13/[address] [facility] HEMATOLOGY Hgb 11.2 g/dL 12.0 - 16.0 11/13/[address] [facility] HEMATOLOGY MCH 28.9 pg 27.0 - 31.0 11/13/[address] [facility] HEMATOLOGY MCV 87.2 fL 80.0 - 98.0 11/13/[address] [facility] HEMATOLOGY RBC 3.88 M/CMM 4.20 - 5.40 11/13/[address] [facility] HEMATOLOGY WBC 7.3 K/CMM 3.7 - 10.4 11/13/[address] [facility] CHEM PANEL Phosphorus 2.9 mg/dL 2.5 - 4.5 11/12/[address] [facility] CHEM PANEL Magnesium Lvl 1.9 mg/dL 1.8 - 2.4 11/12/[address] [facility] CHEM PANEL A/G Ratio 1.0 0.7 - 1.6 11/12/[address] [facility] CHEM PANEL Globulin 2.7 g/dL 2.0 - 4.0 11/12/[address] [facility] CHEM PANEL B/C Ratio 3 6 - 25 11/12/[address] [facility] CHEM PANEL AGAP 11.8 meq/L 10.0 - 20.0 11/12/[address] [facility] CHEM PANEL eGFR 73 mL/min/1.73m2 11/12/2014 2Result Comment: The eGFR is calculated using the [...] from the National Kidney Disease Education Program (NKDEP) which additionally recommends that when the eGFR is used in patients with extremes of body mass index for purposes of drug dosing, the eGFR should be multiplied by the estimated BMI. [facility] CHEM PANEL Chloride Lvl 111 meq/L 95 - 109 11/12/[address] [facility] CHEM PANEL Calcium Lvl 8.2 mg/dL 8.5 - 10.5 11/12/[address] [facility] CHEM PANEL CO2 25 meq/L 24 - 32 11/12/[address] [facility] CHEM PANEL Potassium Lvl 3.8 meq/L 3.5 - 5.1 11/12/[address] [facility] CHEM PANEL Sodium Lvl 144 meq/L 135 - 145 11/12/[address] [facility] CHEM PANEL Alk Phos 76 unit/L 39 - 136 11/12/[address] [facility] CHEM PANEL Bili Total 0.5 mg/dL 0.2 - 1.3 11/12/[address] [facility] CHEM PANEL Total Protein 5.4 g/dL 6.4 - 8.4 11/12/[address] [facility] CHEM PANEL Albumin Lvl 2.7 g/dL 3.5 - 5.0 11/12/[address] [facility] CHEM PANEL AST 56 unit/L 0 - 37 11/12/[address] [facility] CHEM PANEL ALT 41 unit/L 0 - 65 11/12/[address] [facility] CHEM PANEL BUN 3 mg/dL 7 - 22 11/12/[address] [facility] CHEM PANEL Creatinine Lvl 1.1 mg/dL 0.5 - 1.4 11/12/[address] [facility] CHEM PANEL Glucose Lvl 107 mg/dL 70 - 99 11/12/2014 4Interpretive Data: Adult reference range values reflect the clinical guidelines of the [place] [employer]. [facility] HEMATOLOGY Eosinophils # 0.1 K/CMM 0.0 - 0.5 11/12/[address] [facility] HEMATOLOGY Basophils # 0.0 K/CMM 0.0 - 0.2 11/12/[address] [facility] HEMATOLOGY Lymphocytes # 2.5 K/CMM 1.0 - 5.5 11/12/[address] [facility] HEMATOLOGY Monocytes # 0.8 K/CMM 0.0 - 0.8 11/12/[address] [facility] HEMATOLOGY Lymphocytes 28.6 % 20.0 - 40.0 11/12/[address] [facility] HEMATOLOGY Segs 60.6 % 45.0 - 75.0 11/12/[address] [facility] HEMATOLOGY Monocytes 9.3 % 2.0 - 12.0 11/12/[address] [facility] HEMATOLOGY Segs-Bands # 5.4 K/CMM 1.5 - 8.1 11/12/[address] [facility] HEMATOLOGY Basophils 0.5 % 0.0 - 1.0 11/12/[address] [facility] HEMATOLOGY Eosinophils 1.0 % 0.0 - 4.0 11/12/[address] [facility] HEMATOLOGY RDW 17.0 % 11.5 - 14.5 11/12/[address] [facility] HEMATOLOGY MCHC 33.8 g/dL 32.0 - 36.0 11/12/[address] [facility] HEMATOLOGY Hct 33.6 % 36.0 - 48.0 11/12/[address] [facility] HEMATOLOGY WBC 8.8 K/CMM 3.7 - 10.4 11/12/[address] [facility] HEMATOLOGY Hgb 11.3 g/dL 12.0 - 16.0 11/12/[address] [facility] HEMATOLOGY RBC 3.89 M/CMM 4.20 - 5.40 11/12/[address] [facility] HEMATOLOGY MPV 10.4 fL 7.4 - 10.4 11/12/[address] [facility] HEMATOLOGY MCH 29.1 pg 27.0 - 31.0 11/12/[address] [facility] HEMATOLOGY MCV 86.3 fL 80.0 - 98.0 11/12/[address] [facility] HEMATOLOGY Platelet 157 K/CMM 133 - 450 11/12/[address] [facility] HEMATOLOGY PTT 33.6 s 22.9 - 35.8 11/12/2014 7Interpretive Data: Heparin Therapeutic Range: 57 - [address] [facility] HEMATOLOGY INR 1.23 0.85 - 1.17 11/12/2014 6Interpretive Data: RECOMMENDED RANGES FOR PROTIME INR: 2.0-3.0 for most medical and surgical thromboembolic states. 2.5-3.5 for artificial heart valves and recurrent embolism. INR SHOULD BE USED ONLY FOR PATIENTS ON STABLE ANTICOAGULANT THERAPY. [facility] HEMATOLOGY PT 15.6 s 12.0 - 14.7 11/12/[address] [facility] URINE AND STOOL UA Turbidity Turbid *ABN* (11/11/14 6:36 AM) Clear 11/11/[address] [facility] URINE AND STOOL UA pH 8.5 5.0 - 8.0 11/11/[address] [facility] URINE AND STOOL UA Protein 30 mg/dL Negative mg/dL 11/11/[address] [facility] URINE AND STOOL UA Spec Grav 1.020 <=1.030 11/11/[address] [facility] URINE AND STOOL UA Color DARK YELLO 11/11/[address] [facility] URINE AND STOOL UA Leuk Est Negative (11/11/14 6:36 AM) Negative 11/11/[address] [facility] URINE AND STOOL UA Bili Small *ABN* (11/11/14 6:36 AM) Negative 11/11/[address] [facility] URINE AND STOOL UA Ketones 40 mg/dL Negative mg/dL 11/11/[address] [facility] URINE AND STOOL UA Glucose Negative (11/11/14 6:36 AM) Negative 11/11/[address] [facility] URINE AND STOOL UA Nitrite Negative (11/11/14 6:36 AM) Negative 11/11/[address] [facility] URINE AND STOOL UA Urobilinogen 1.0 EU/dL 0.1 - 1.0 11/11/[address] [facility] URINE AND STOOL UA Blood Large *ABN* (11/11/14 6:36 AM) Negative 11/11/[address] [facility] URINE AND STOOL UA Mucus Moderate /LPF None Seen /LPF 11/11/[address] [facility] URINE AND STOOL UA RBC >100 /HPF 0 - 2 11/11/[address] [facility] URINE AND STOOL UA Bacteria Few /HPF None Seen /HPF 11/11/[address] [facility] URINE AND STOOL UA Sq Epi Few /LPF Few /LPF 11/11/[address] [facility] URINE AND STOOL UA WBC 3-5 /HPF None Seen /HPF 11/11/[address] [facility] CHEM PANEL Lipase Lvl 261 unit/L 73 - 393 11/11/[address] [facility] CHEM PANEL eGFR 66 mL/min/1.73m2 11/11/2014 3Result Comment: The eGFR is calculated using the [...] from the National Kidney Disease Education Program (NKDEP) which additionally recommends that when the eGFR is used in patients with extremes of body mass index for purposes of drug dosing, the eGFR should be multiplied by the estimated BMI. [facility] CHEM PANEL Glucose Lvl 121 mg/dL 70 - 99 11/11/2014 5Interpretive Data: Adult reference range values reflect the clinical guidelines of the [place] [employer]. [facility] CHEM PANEL Bili Total 0.7 mg/dL 0.2 - 1.3 11/11/[address] [facility] CHEM PANEL ALT 19 unit/L 0 - 65 11/11/[address] [facility] CHEM PANEL A/G Ratio 0.9 0.7 - 1.6 11/11/[address] [facility] CHEM PANEL Globulin 3.9 g/dL 2.0 - 4.0 11/11/[address] [facility] CHEM PANEL Alk Phos 91 unit/L 39 - 136 11/11/[address] [facility] CHEM PANEL AST 24 unit/L 0 - 37 11/11/[address] [facility] CHEM PANEL B/C Ratio 6 6 - 25 11/11/[address] [facility] CHEM PANEL Albumin Lvl 3.6 g/dL 3.5 - 5.0 11/11/[address] [facility] CHEM PANEL Total Protein 7.5 g/dL 6.4 - 8.4 11/11/[address] [facility] CHEM PANEL Potassium Lvl 2.6 meq/L 3.5 - 5.1 11/11/2014 1Result Comment: Critical Result(s) called to Diana MCCULLOUGH at _11/11/2014 06:45 by_CP. Read back OK. [facility] CHEM PANEL Calcium Lvl 8.7 mg/dL 8.5 - 10.5 11/11/[address] [facility] CHEM PANEL AGAP 11.6 meq/L 10.0 - 20.0 11/11/[address] [facility] CHEM PANEL CO2 25 meq/L 24 - 32 11/11/[address] [facility] CHEM PANEL Chloride Lvl 105 meq/L 95 - 109 11/11/[address] [facility] CHEM PANEL Sodium Lvl 139 meq/L 135 - 145 11/11/[address] [facility] CHEM PANEL Creatinine Lvl 1.2 mg/dL 0.5 - 1.4 11/11/[address] [facility] CHEM PANEL BUN 7 mg/dL 7 - 22 11/11/[address] [facility] ENDOCRINOLOGY S Preg Negative *NA* (11/11/14 6:02 AM) Negative 11/11/[address] [facility] HEMATOLOGY Monocytes # 0.4 K/CMM 0.0 - 0.8 11/11/[address] [facility] HEMATOLOGY Basophils 0.2 % 0.0 - 1.0 11/11/[address] [facility] HEMATOLOGY Segs-Bands # 8.1 K/CMM 1.5 - 8.1 11/11/[address] [facility] HEMATOLOGY Lymphocytes # 1.5 K/CMM 1.0 - 5.5 11/11/[address] [facility] HEMATOLOGY Monocytes 4.5 % 2.0 - 12.0 11/11/[address] [facility] HEMATOLOGY Eosinophils 0.2 % 0.0 - 4.0 11/11/[address] [facility] HEMATOLOGY Lymphocytes 15.3 % 20.0 - 40.0 11/11/[address] [facility] HEMATOLOGY Segs 79.8 % 45.0 - 75.0 11/11/[address] [facility] HEMATOLOGY Basophils # 0.0 K/CMM 0.0 - 0.2 11/11/[address] [facility] HEMATOLOGY Eosinophils # 0.0 K/CMM 0.0 - 0.5 11/11/[address] [facility] HEMATOLOGY MPV 10.4 fL 7.4 - 10.4 11/11/[address] [facility] HEMATOLOGY RDW 17.2 % 11.5 - 14.5 11/11/[address] [facility] HEMATOLOGY Platelet 220 K/CMM 133 - 450 11/11/[address] [facility] HEMATOLOGY Hct 39.9 % 36.0 - 48.0 11/11/[address] [facility] HEMATOLOGY MCV 85.8 fL 80.0 - 98.0 11/11/[address] [facility] HEMATOLOGY MCH 28.8 pg 27.0 - 31.0 11/11/[address] [facility] HEMATOLOGY MCHC 33.6 g/dL 32.0 - 36.0 11/11/[address] [facility] HEMATOLOGY WBC 10.1 K/CMM 3.7 - 10.4 11/11/[address] [facility] HEMATOLOGY RBC 4.66 M/CMM 4.20 - 5.40 11/11/[address] [facility] HEMATOLOGY Hgb 13.4 g/dL 12.0 - 16.0 11/11/[address] [facility] Vital Signs Vital Sign Value Date Comments Source Systolic (mm Hg) 160 08/15/2018 [facility] Diastolic (mm Hg) 89 08/15/2018 [facility] Respitory Rate 31 08/15/2018 [facility] Systolic (mm Hg) 144 08/15/2018 [facility] Diastolic (mm Hg) 98 08/15/2018 [facility] Respitory Rate 22 08/15/2018 [facility] Respitory Rate 23 08/15/2018 [facility] Heart Rate 68 08/15/2018 [facility] Temperature Oral (F) 98.1 F 08/15/2018 [facility] Height 172.72 cm 08/15/2018 [facility] BMI Calculated 35.96 08/15/2018 [facility] Weight 107.273 08/15/2018 [facility] Systolic (mm Hg) 159 08/15/2018 [facility] Diastolic (mm Hg) 102 08/15/2018 [facility] Temperature Oral (F) 97.9 F 09/30/2017 [facility] Systolic (mm Hg) 137 09/30/2017 [facility] Diastolic (mm Hg) 85 09/30/2017 [facility] Heart Rate 73 09/30/2017 [facility] Respitory Rate 18 09/30/2017 [facility] Systolic (mm Hg) 142 09/30/2017 [facility] Diastolic (mm Hg) 97 09/30/2017 [facility] Respitory Rate 18 09/30/2017 [facility] Heart Rate 71 09/30/2017 [facility] BMI Calculated 32.76 09/30/2017 [facility] Weight 97.727 09/30/2017 [facility] Height 172.72 cm 09/30/2017 [facility] Heart Rate 91 09/30/2017 [facility] Respitory Rate 15 09/30/2017 [facility] Systolic (mm Hg) 129 09/30/2017 [facility] Diastolic (mm Hg) 83 09/30/2017 [facility] Temperature Oral (F) 99.1 F 09/30/2017 [facility] Temperature Oral (F) 98.0 F 02/19/2015 [facility] Respitory Rate 16 02/19/2015 [facility] Systolic (mm Hg) 127 02/19/2015 [facility] Diastolic (mm Hg) 80 02/19/2015 [facility] Systolic (mm Hg) 128 02/19/2015 [facility] Diastolic (mm Hg) 76 02/19/2015 [facility] Respitory Rate 16 02/19/2015 [facility] Temperature Oral (F) 98.3 F 02/19/2015 [facility] Systolic (mm Hg) 111 02/19/2015 [facility] Diastolic (mm Hg) 63 02/19/2015 [facility] Respitory Rate 16 02/19/2015 [facility] Temperature Oral (F) 98.1 F 02/19/2015 [facility] Height 175.26 cm 02/19/2015 [facility] Weight 73.636 02/19/2015 [facility] BMI Calculated 23.97 02/19/2015 [facility] Heart Rate 83 02/19/2015 [facility] Systolic (mm Hg) 118 11/13/2014 [facility] Diastolic (mm Hg) 79 11/13/2014 [facility] Heart Rate 65 11/13/2014 [facility] Respitory Rate 18 11/13/2014 [facility] Heart Rate 73 11/13/2014 [facility] Temperature Oral (F) 98.1 F 11/13/2014 [facility] Respitory Rate 18 11/13/2014 [facility] Systolic (mm Hg) 105 11/13/2014 [facility] Diastolic (mm Hg) 64 11/13/2014 [facility] Heart Rate 75 11/13/2014 [facility] Respitory Rate 20 11/13/2014 [facility] Systolic (mm Hg) 134 11/13/2014 [facility] Diastolic (mm Hg) 71 11/13/[address] [facility] Temperature Oral (F) 97.8 F 11/13/[address] [facility] Temperature Oral (F) 98.2 F 11/13/[address] [facility] Weight 81.847 11/12/[address] [facility] Height 172.72 cm 11/12/[address] [facility] BMI Calculated 27.44 11/12/[address] [facility] BMI Calculated 26.21 11/11/[address] [facility] Weight 78.182 11/11/[address] [facility] Height 172.72 cm 11/11/[address] [facility] Encounters Location Location Details Encounter Type Encounter Number Reason For Visit Attending Provider ADM Date DC Date Status Source [facility] [place] [place] Inpatient [id number] Theresa Mi 11/11/2014 11/13/2014 [facility] [id number] Arlene Barrientos 02/19/2015 02/19/2015 [facility] Emergency [id number] Herb Rolon 09/30/2017 09/30/2017 [facility] Emergency [id number] Suraj Campos 08/15/2018 08/15/[address] [facility] Procedures Procedure Code Date Perfomer Comments Source
--- OUTSIDE RECORDS SUMMARY | 2018-12-28 10:34 | XMS REPORT ---
Author Author [facility] Address Unknown Phone Unavailable Care Team Providers Care Fast [employer] Worker Name Role Phone Unavailable Unavailable Problems This patient has no known problems. Allergies, Adverse Reactions, Alerts This patient has no known allergies or adverse reactions. Medications This patient has no known medications. Results Test Description Test Time Test Comments Text Results Atomic Results Result Comments CT Abdomen and Pelvis w/o Contrast 2018-08-19 01:35:43 Patient: RONAK SCHWARTZ Date/Time08/19/2018 01:15 CSTReason for Examupper;Abdominal painReportCT abdomen and pelvis without IV contrast.Indication: Upper abdominal painComparison: None availableLocation: [id number]: CT images of the abdomen and pelvis were obtained from the diaphragm to the pubic symphysis without administration of IV contrast. Coronal and sagittal reformats are provided.Findings:Lungs bases: UnremarkableLiver: Noncontrast appearance of the exception of likely mild steatosisGallbladder: Noncontrast appearance is unremarkablePancreas: Noncontrast appearance is unremarkableSpleen: Noncontrast appearance is unremarkableAdrenal glands: Noncontrast appearance is unremarkableKidneys: Noncontrast appearance is unremarkableBowel: No bowel obstruction. Nonspecific focal thickening of the ascending colon is noted, recommend further evaluation with colonoscopy. Mild diverticulosis is seen. The appendix is unremarkable.Peritoneum: No ascites or free air.Skeletal: No acute fracture or aggressive osseous lesion.Impression:Exam findings limited by absence of IV and oral contrastNo CT evidence of an acute abnormality within the abdominal pelvis to explain the patient's symptomology.Nonspecific focal thickening of the ascending colon is noted, recommend further evaluation with colonoscopyAdditional findings as above Final Dictated by: MD Krishan, GeorgetteDictated DT/TM: 08/19/2018 1:27 amSigned by: MD Krishan, SaniaSigned (Electronic Signature): 08/19/2018 1:35 am
--- OUTSIDE RECORDS SUMMARY | 2018-12-28 10:34 | XMS REPORT | Summary of Care ---
Author Author [facility] Organization [facility] Address Unknown Phone Unavailable Encounter RIGOBERTO Tellez(YOLY) [id number] Date(s): 02/19/15 - 02/19/15 [facility] [address] [place] [id number] Discharge Diagnosis: Nausea & vomiting Discharge Diagnosis: Abdominal discomfort, epigastric Discharge Disposition: Home Attending Physician: Arlene Barrientos MD Vital Signs 1 2 3 Most recent to oldest [Reference Range]: 175.26 cm (02/19/15 8:54 AM) Height 1 2 3 Most recent to oldest [Reference Range]: 98.0 DegF (02/19/15 3:33 PM) 98.3 DegF (02/19/15 2:00 PM) 98.1 DegF (02/19/15 1:00 PM) Temperature Oral [96.4-99.1 DegF] 1 2 3 Most recent to oldest [Reference Range]: 127/80 mmHg (02/19/15 3:33 PM) 128/76 mmHg (02/19/15 2:00 PM) 111/63 mmHg (02/19/15 1:30 PM) Blood Pressure [90-140/60-90 mmHg] 1 2 3 Most recent to oldest [Reference Range]: 16 BRMIN (02/19/15 3:33 PM) 16 BRMIN (02/19/15 2:00 PM) 16 BRMIN (02/19/15 1:30 PM) Respiratory Rate [14-20 BRMIN] 1 2 3 Most recent to oldest [Reference Range]: 83 bpm (02/19/15 8:54 AM) Peripheral Pulse Rate [60-100 bpm] 1 2 3 Most recent to oldest [Reference Range]: 73.636 kg (02/19/15 8:54 AM) Weight 1 2 3 Most recent to oldest [Reference Range]: 23.97 m2 (02/19/15 8:54 AM) Body Mass Index Problem List No data available for this section Allergies, Adverse Reactions, Alerts Substance Reaction Severity Status codeine Active iodine Mild Active shellfish1 Moderate Active 1Patient state she swells up and her airway closes when eating shellfish i.e shrimp and crab Medications albuterol 0.083% inhalation solution 2.49 mg, 3 mL, Route: NEB, Drug form: SOLN, ONCE, Dosing Weight 73.636, kg, Prio rity: STAT, Start date: 02/19/15 11:37:00, Stop date: 02/19/15 11:37:00 Notes: SEE RT DOCUMENTATION (Same as: Proventil) Start Date: 02/19/15 Stop Date: 02/19/15 Status: Completed famotidine 20 mg, 2 mL, Route: IVP, Drug form: INJ, ONCE, Dosing Weight 73.636, kg, Priorit y: STAT, Start date: 02/19/15 9:24:00, Stop date: 02/19/15 9:24:00 Notes: (Same as: Pepcid)Can be dilute in 5-10cc NS IVP: Slow IV push over at le ast 2 minutes. Start Date: 02/19/15 Stop Date: 02/19/15 Status: Completed GI cocktail 30 mL, Route: PO, Drug Form: SUSP, Dosing Weight 73.636, kg, ONCE, STAT, Start d ate: 02/19/15 14:02:00, Stop date: 02/19/15 14:02:00 Notes: G.I. Cocktail=antacid with simethicone 22.5 mL - lidocaine viscous 7.5 mL Start Date: 02/19/15 Stop Date: 02/19/15 Status: Completed ketOROLAC 30 mg, 1 mL, Route: IVP, Drug form: INJ, ONCE, Dosing Weight 73.636, kg, Priorit y: STAT, Start date: 02/19/15 9:24:00, Stop date: 02/19/15 9:24:00 Notes: (Same as:Toradol) IV bolus must be given >15 seconds. Give IM administration slowly and deeply into the muscle.Not for use > 4 days MEDICATION WASTE Product Size: 30 mgProduct Wasted: ___ mg Start Date: 02/19/15 Stop Date: 02/19/15 Status: Completed morphine Sulfate 4 mg, 1 mL, Route: IVP, Drug form: INJ, ONCE, Dosing Weight 73.636, kg, Priority : STAT, Start date: 02/19/15 11:37:00, Stop date: 02/19/15 11:37:00 Notes: (Same as:MORPhine Sulfate) Start Date: 02/19/15 Stop Date: 02/19/15 Status: Completed ondansetron 4 mg, 2 mL, Route: IVP, Drug form: INJ, ONCE, Dosing Weight 73.636, kg, Priority : STAT, Start date: 02/19/15 9:24:00, Stop date: 02/19/15 9:24:00 Notes: (Same as: Madisyn) MEDICATION WASTE Product Size: 4 mgProduct Was samuel: ___ mg Start Date: 02/19/15 Stop Date: 02/19/15 Status: Completed Pepcid 20 mg oral tablet 20 mg=1 tab, PO, BID, # 60 tab, 0 Refill(s) Start Date: 02/19/15 Status: Ordered Saline Flush 0.9% 10 mL, Route: IVP, Drug Form: INJ, Dosing Weight 73.636, kg, PRN, PRN Line Flush , Start date: 02/19/15 9:24:00, Duration: 30 day, Stop date: 03/21/15 9:23:00 Notes: Same as: BD Posiflush Sterile Start Date: 02/19/15 Stop Date: 02/19/15 Status: Discontinued Sodium Chloride 0.9% (Bolus) IV 1,000 mL, 1000 ml/hr, Infuse Over: 1 hr, Route: IV, 1,000, Drug form: INJ, ONCE, Priority: STAT, Dosing Weight 73.636 kg, Start date: 02/19/15 9:24:00, Duration: 1 doses or times, Stop date: 02/19/15 9:24:00 Start Date: 02/19/15 Stop Date: 02/19/15 Status: Completed tramadol 50 mg oral tablet 50 mg=1 tab, PO, Q6H, PRN Pain, X 5 day, # 20 tab, 0 Refill(s) Start Date: 02/19/15 Stop Date: 02/24/15 Status: Ordered Zofran 4 mg oral tablet 4 mg=1 tab, PO, Q8H, PRN Nausea/vomiting, X 5 day, # 15 tab, 0 Refill(s) Start Date: 02/19/15 Stop Date: 02/24/15 Status: Ordered Results ELECTROLYTES Most recent to 1 oldest [Reference Range]: Sodium Lvl [135-145 141 mEq/L mEq/L] (02/19/15 10:37 AM) Potassium Lvl 3.6 mEq/L [3.5-5.1 mEq/L] (02/19/15 10:37 AM) Chloride Lvl [95-109 106 mEq/L mEq/L] (02/19/15 10:37 AM) CO2 [24-32 mEq/L] 21 mEq/L *LOW* (02/19/15 10:37 AM) AGAP [10.0-20.0 17.6 mEq/L mEq/L] (02/19/15 10:37 AM) CHEM PANEL Most recent to 1 oldest [Reference Range]: Creatinine Lvl 1.1 mg/dL [0.5-1.4 mg/dL] (02/19/15 10:37 AM) eGFR 73 mL/min/1.73m2 1 *NA* (02/19/15 10:37 AM) BUN [7-22 mg/dL] 13 mg/dL (02/19/15 10:37 AM) B/C Ratio [6-25] 12 (02/19/15 10:37 AM) Glucose Lvl [70-99 85 mg/dL mg/dL] (02/19/15 10:37 AM) Total Protein 7.6 g/dL [6.4-8.4 g/dL] (02/19/15 10:37 AM) Albumin Lvl [3.5-5.0 3.7 g/dL g/dL] (02/19/15 10:37 AM) Globulin [2.0-4.0 3.9 g/dL g/dL] (02/19/15 10:37 AM) A/G Ratio [0.7-1.6] 0.9 (02/19/15 10:37 AM) Calcium Lvl 8.8 mg/dL [8.5-10.5 mg/dL] (02/19/15 10:37 AM) ALT [0-65 unit/L] 26 unit/L (02/19/15 10:37 AM) AST [0-37 unit/L] 19 unit/L (02/19/15 10:37 AM) Alk Phos [39-136 82 unit/L unit/L] (02/19/15 10:37 AM) Bili Total [0.2-1.3 0.6 mg/dL mg/dL] (02/19/15 10:37 AM) Lipase Lvl [73-393 87 unit/L unit/L] (02/19/15 10:37 AM) 1Result Comment: The eGFR is calculated [...] 1 oldest [Reference Range]: Total CK [12-191 206 unit/L unit/L] *NA* (02/19/15 10:34 AM) CK MB [0.5-3.6 0.6 ng/mL ng/mL] (02/19/15 10:34 AM) CK MB Index 0.29 [0.0-2.5] *NA* (02/19/15 10:34 AM) Troponin-I <0.015 ng/mL [0.00-0.40 ng/mL] (02/19/15 10:34 AM) ENDOCRINOLOGY Most recent to 1 oldest [Reference Range]: S Preg [Negative] Negative (02/19/15 10:34 AM) URINE AND STOOL Most recent to 1 oldest [Reference Range]: UA Turbidity [Clear] Clear (02/19/15 2:14 PM) UA Color [Yellow] Yellow *NA* (02/19/15 2:14 PM) UA pH [5.0-8.0] 6.0 (02/19/15 2:14 PM) UA Spec Grav 1.025 [<=1.030] (02/19/15 2:14 PM) UA Glucose Negative [Negative] (02/19/15 2:14 PM) UA Blood [Negative] Trace *ABN* (02/19/15 2:14 PM) UA Ketones [Negative 40 mg/dL mg/dL] *ABN* (02/19/15 2:14 PM) UA Protein Trace [Negative] *ABN* (02/19/15 2:14 PM) UA Urobilinogen 1.0 EU/dL [0.1-1.0 EU/dL] (02/19/15 2:14 PM) UA Bili [Negative] Small 2 *ABN* (02/19/15 2:14 PM) UA Leuk Est Negative [Negative] (02/19/15 2:14 PM) UA Nitrite Negative [Negative] (02/19/15 2:14 PM) UA WBC [None Seen 0-2 /HPF /HPF] (02/19/15 2:14 PM) UA RBC [0-2 /HPF] 0-2 /HPF (02/19/15 2:14 PM) UA Bacteria [None Few /HPF Seen /HPF] (02/19/15 2:14 PM) UA Sq Epi [Few /LPF] Few /LPF (02/19/15 2:14 PM) UA Mucus [None Seen] None Seen (02/19/15 2:14 PM) Micro? Performed (02/19/15 2:14 PM) 2Result Comment: Interpret positive bilirubin results with caution. Confirmatory testing not possible due to the unavailability of reagent. Correlation with serum chemistry results recommended. IMMUNOLOGY Most recent to 1 oldest [Reference Range]: CDC HIV 4th GEN Negative [Negative] (02/19/15 10:37 AM) HEMATOLOGY Most recent to 1 oldest [Reference Range]: WBC [3.7-10.4 K/CMM] 11.4 K/CMM *HI* (02/19/15 10:37 AM) RBC [4.20-5.40 4.54 M/CMM M/CMM] (02/19/15 10:37 AM) Hgb [12.0-16.0 g/dL] 13.0 g/dL (02/19/15 10:37 AM) Hct [36.0-48.0 %] 39.0 % (02/19/15 10:37 AM) MCV [80.0-98.0 fL] 85.8 fL (02/19/15 10:37 AM) MCH [27.0-31.0 pg] 28.7 pg (02/19/15 10:37 AM) MCHC [32.0-36.0 33.4 g/dL g/dL] (02/19/15 10:37 AM) RDW [11.5-14.5 %] 17.7 % *HI* (02/19/15 10:37 AM) Platelet [133-450 209 K/CMM K/CMM] (02/19/15 10:37 AM) MPV [7.4-10.4 fL] 10.7 fL *HI* (02/19/15 10:37 AM) Segs [45.0-75.0 %] 73.3 % (02/19/15 10:37 AM) Lymphocytes 17.9 % [20.0-40.0 %] *LOW* (02/19/15 10:37 AM) Monocytes [2.0-12.0 7.9 % %] (02/19/15 10:37 AM) Eosinophils [0.0-4.0 0.1 % %] (02/19/15 10:37 AM) Basophils [0.0-1.0 0.8 % %] (02/19/15 10:37 AM) Segs-Bands # 8.3 K/CMM [1.5-8.1 K/CMM] *HI* (02/19/15 10:37 AM) Lymphocytes # 2.0 K/CMM [1.0-5.5 K/CMM] (02/19/15 10:37 AM) Monocytes # [0.0-0.8 0.9 K/CMM K/CMM] *HI* (02/19/15 10:37 AM) Eosinophils # 0.0 K/CMM [0.0-0.5 K/CMM] (02/19/15 10:37 AM) Basophils # [0.0-0.2 0.1 K/CMM K/CMM] (02/19/15 10:37 AM) Immunizations Vaccine Date Refusal Reason pneumococcal 23-valent vaccine1 07/11/12 1Admin Note: Patient only recalled year of pneumococcal vaccine in 2012 does not remember exact month/day. Procedures No data available for this section Social History Social History Type Response Substance Abuse Use: Current. Type: Marijuana. IV drug use: No. Drug use interferes with work/home: No. Ready to change: No. Household substance abuse concerns: No.1 Employment/School Status: Employed. 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 Alcohol Current, Type Beer, Wine. Previous treatment: None.2 Smoking Status Current every day smoker; Exposure to Tobacco Smoke None; Cigarette Smoking Last 365 Days No; Reg Smoking Cessation Counseling No3 1Marijuana everyday use 2Occasional alcohol juse 3Patient state she smokes marijuana everyday Assessment and Plan No data available for this section
--- OUTSIDE RECORDS SUMMARY | 2018-12-28 10:34 | XMS REPORT | Summary of Care ---
Author Organization Unknown Address Unknown Phone Unavailable Encounter HQ Geoff(YOLY) [id number] Date(s): 11/11/14 - 11/13/14 [facility] [address] [place] [address]- Discharge Disposition: Home Physician Attending: Theresa Mi MD Physician Admitting: Theresa Mi MD Vital Signs 1 2 3 Most recent to oldest [Reference Range]: 172.72 cm (11/12/14 1:07 AM) 172.72 cm (11/11/14 5:48 AM) Height 98.1 DegF (11/13/14 7:31 AM) 97.8 DegF (11/13/14 4:00 AM) 98.2 DegF (11/13/14 12:37 AM) Temperature Oral [96.4-99.1 DegF] 118/79 mmHg (11/13/14 11:09 AM) 105/64 mmHg (11/13/14 7:31 AM) 134/71 mmHg (11/13/14 4:00 AM) Blood Pressure [90-140/60-90 mmHg] 18 BRMIN (11/13/14 11:09 AM) 18 BRMIN (11/13/14 7:31 AM) 20 BRMIN (11/13/14 4:00 AM) Respiratory Rate [14-20 BRMIN] 65 bpm (11/13/14 11:09 AM) 73 bpm (11/13/14 7:31 AM) 75 bpm (11/13/14 4:00 AM) Peripheral Pulse Rate [60-100 bpm] 81.847 kg (11/12/14 1:07 AM) 78.182 kg (11/11/14 5:48 AM) Weight 27.44 m2 (11/12/14 1:07 AM) 26.21 m2 (11/11/14 5:48 AM) Body Mass Index Problem List No data available for this section Allergies, Adverse Reactions, Alerts Substance Reaction Severity Status codeine Active iodine Mild Active shellfish1 Moderate Active 1Patient state she swells up and her airway closes when eating shellfish i.e shrimp and crab Medications ciprofloxacin 400 mg/200 mL intravenous solution 400 mg, 200 mL, Route: IVPB, Drug form: INJ, ABXQ8H, Dosing Weight 78.182, kg, P riority: STAT, Start date: 11/11/14 21:56:00, Duration: 30 day, Stop date: 12/11 13:56:00 Notes: Do not refrigerate Start Date: 11/11/14 Stop Date: 11/13/14 Status: Discontinued Dulcolax Laxative 20 mg, 4 tab, Route: PO, Drug form: ECTAB, Daily, Dosing Weight 81.847, kg, Prio rity: STAT, Start date: 11/13/14 11:47:00, Duration: 30 day, Stop date: 12/13/14 9:00:00 Notes: (Same As: Dulcolax, Correctol) (Do Not Crush) "Do Not Crush" Start Date: 11/13/14 Stop Date: 11/13/14 Status: Discontinued metroNIDAZOLE 500 mg, 100 mL, Route: IVPB, Drug form: INJ, ABXQ8H, Dosing Weight 78.182, kg, P riority: STAT, Start date: 11/11/14 21:56:00, Duration: 30 day, Stop date: 12/11 13:56:00 Notes: (Same as: Flagyl) Avoid alcohol. Start Date: 11/11/14 Stop Date: 11/13/14 Status: Discontinued morphine Sulfate 4 mg, 1 mL, Route: IV, Drug form: INJ, Q4H, Dosing Weight 78.182, kg, PRN Pain S core 6-10, Start date: 11/11/14 9:45:00, Duration: 30 day, Stop date: 12/11/14 9 :44:00 Notes: (Same as:MORPhine Sulfate) Start Date: 11/11/14 Stop Date: 11/13/14 Status: Discontinued morphine Sulfate 2 mg, 1 mL, Route: IV, Drug form: INJ, Q4H, Dosing Weight 78.182, kg, PRN Pain S core 1-5, Start date: 11/11/14 9:45:00, Duration: 30 day, Stop date: 12/11/14 9: 44:00 Notes: (Same as:MORPhine Sulfate) Start Date: 11/11/14 Stop Date: 11/13/14 Status: Discontinued morphine Sulfate 4 mg, 1 mL, Route: IVP, Drug form: INJ, ONCE, Dosing Weight 78.182, kg, Priority : STAT, Start date: 11/11/14 6:27:00, Stop date: 11/11/14 6:27:00 Notes: (Same as:MORPhine Sulfate) Start Date: 11/11/14 Stop Date: 11/11/14 Status: Completed NS (Bolus) IV 1,000 mL, 1,000 ml/hr, Infuse Over: 1 hr, Route: IV, 1,000, Drug form: INJ, ONCE , Priority: STAT, Dosing Weight 78.182 kg, Start date: 11/11/14 6:20:00, Duratio n: 1 doses or times, Stop date: 11/11/14 6:20:00 Start Date: 11/11/14 Stop Date: 11/11/14 Status: Completed NS + KCL 20mEq/L 1000ml (Premix) 1000 mL 1,000 mL, Rate: 125 ml/hr, Infuse over: 8 hr, Route: IV, Dosing Weight 78.182 kg , Total Volume: 1,000, Start date: 11/11/14 21:57:00, Duration: 30 day, Stop alfonso e: 12/11/14 21:56:00 Start Date: 11/11/14 Stop Date: 11/11/14 Status: Discontinued NS + KCL 40mEq/L 1000ml (Premix) 1,000 mL 1,000 mL, Rate: 125 ml/hr, Infuse over: 8 hr, Route: IV, Dosing Weight 78.182 kg , Total Volume: 1,000, Start date: 11/11/14 18:39:00, Duration: 30 day, Stop alfonso e: 12/11/14 18:38:00 Notes: PREMIX IV - Do Not Alter Start Date: 11/11/14 Stop Date: 11/13/14 Status: Discontinued ondansetron 4 mg, 2 mL, Route: IVP, Drug form: INJ, Q8H, Dosing Weight 78.182, kg, PRN Nause a & Vomiting, Start date: 11/11/14 9:43:00, Duration: 30 day, Stop date: 12/11/14 9:42:00 Notes: (Same as: Zofran) MEDICATION WASTE Product Size: 4 mgProduct Was samuel: ___ mg Start Date: 11/11/14 Stop Date: 11/13/14 Status: Discontinued Pepcid 20 mg, 2 mL, Route: IVP, Drug form: INJ, [id number], Start date: 11/11/14 18:00:00, Duration: 30 day, Stop date: 12/11/14 6:00:00 Notes: (Same as: Pepcid)Can be dilute in 5-10cc NS IVP: Slow IV push over at le ast 2 minutes. Start Date: 11/11/14 Stop Date: 11/13/14 Status: Discontinued Pepcid 10 mg, Route: IV, Q24H, Dosing Weight 78.182, kg, Priority: NOW, Start date: 10/23 9:46:00, Duration: 30 day, Stop date: 12/10/14 9:46:00, Special Instructions: Start Date: 11/11/14 Stop Date: 11/11/14 Status: Voided With Results potassium chloride 40 mEq, 2 tab, Route: PO, Drug form: ERTAB, ONCE, Dosing Weight 78.182, kg, Prio rity: STAT, Start date: 11/11/14 7:28:00, Stop date: 11/11/14 7:28:00 Notes: (Same as: K-Dur 20)"Do Not Crush" With food and full glass of water Start Date: 11/11/14 Stop Date: 11/11/14 Status: Completed potassium chloride 10 mEq, 100 mL, Route: IVPB, Drug form: INJ, Q1H, Dosing Weight 78.182, kg, Tota l dose=60 mEq, Priority: STAT, Start date: 11/11/14 7:28:00, Duration: 6 doses o r times, Stop date: 11/11/14 12:28:00 Notes: Infuse at a rate of 10 mEq/hr.(Same as: KCL) Start Date: 11/11/14 Stop Date: 11/11/14 Status: Completed Zofran 4 mg, 2 mL, Route: IVP, Drug form: INJ, ONCE, Dosing Weight 78.182, kg, Start da te: 11/11/14 6:20:00, Stop date: 11/11/14 6:20:00 Notes: (Same as: Zofran) MEDICATION WASTE Product Size: 4 mgProduct Was samuel: ___ mg Start Date: 11/11/14 Stop Date: 11/11/14 Status: Completed Results ELECTROLYTES 1 2 3 Most recent to oldest [Reference Range]: 144 mEq/L (11/12/14 6:24 AM) 139 mEq/L (11/11/14 6:02 AM) Sodium Lvl [135-145 mEq/L] 3.8 mEq/L (11/12/14 6:24 AM) 2.6 mEq/L 1 *CRIT* (11/11/14 6:02 AM) Potassium Lvl [3.5-5.1 mEq/L] 111 mEq/L *HI* (11/12/14 6:24 AM) 105 mEq/L (11/11/14 6:02 AM) Chloride Lvl [95-109 mEq/L] 25 mEq/L (11/12/14 6:24 AM) 25 mEq/L (11/11/14 6:02 AM) CO2 [24-32 mEq/L] 11.8 mEq/L (11/12/14 6:24 AM) 11.6 mEq/L (11/11/14 6:02 AM) AGAP [10.0-20.0 mEq/L] 1Result Comment: Critical Result(s) called to Diana MCCULLOUGH at _11/11/2014 06:45 by_CP. Read back OK. CHEM PANEL 1 2 3 Most recent to oldest [Reference Range]: 1.1 mg/dL (11/12/14 6:24 AM) 1.2 mg/dL (11/11/14 6:02 AM) Creatinine Lvl [0.5-1.4 mg/dL] 73 mL/min/1.73m2 2 *NA* (11/12/14 6:24 AM) 66 mL/min/1.73m2 3 *NA* (11/11/14 6:02 AM) eGFR 3 mg/dL *LOW* (11/12/14 6:24 AM) 7 mg/dL (11/11/14 6:02 AM) BUN [7-22 mg/dL] 3 *LOW* (11/12/14 6:24 AM) 6 (11/11/14 6:02 AM) B/C Ratio [6-25] 107 mg/dL 4 *HI* (11/12/14 6:24 AM) 121 mg/dL 5 *HI* (11/11/14 6:02 AM) Glucose Lvl [70-99 mg/dL] 5.4 g/dL *LOW* (11/12/14 6:24 AM) 7.5 g/dL (11/11/14 6:02 AM) Total Protein [6.4-8.4 g/dL] 2.7 g/dL *LOW* (11/12/14 6:24 AM) 3.6 g/dL (11/11/14 6:02 AM) Albumin Lvl [3.5-5.0 g/dL] 2.7 g/dL (11/12/14 6:24 AM) 3.9 g/dL (11/11/14 6:02 AM) Globulin [2.0-4.0 g/dL] 1.0 (11/12/14 6:24 AM) 0.9 (11/11/14 6:02 AM) A/G Ratio [0.7-1.6] 8.2 mg/dL *LOW* (11/12/14 6:24 AM) 8.7 mg/dL (11/11/14 6:02 AM) Calcium Lvl [8.5-10.5 mg/dL] 2.9 mg/dL (11/12/14 6:24 AM) Phosphorus [2.5-4.5 mg/dL] 1.9 mg/dL (11/12/14 6:24 AM) Magnesium Lvl [1.8-2.4 mg/dL] 41 unit/L (11/12/14 6:24 AM) 19 unit/L (11/11/14 6:02 AM) ALT [0-65 unit/L] 56 unit/L *HI* (11/12/14:24 AM) 24 unit/L (11/11/14 6:02 AM) AST [0-37 unit/L] 76 unit/L (11/12/14 6:24 AM) 91 unit/L (11/11/14 6:02 AM) Alk Phos [39-136 unit/L] 0.5 mg/dL (11/12/14 6:24 AM) 0.7 mg/dL (11/11/14 6:02 AM) Bili Total [0.2-1.3 mg/dL] 261 unit/L (11/11/14 6:02 AM) Lipase Lvl [73-393 unit/L] 2Result Comment: The eGFR is calculated using [...] be mul tiplied by the estimated BMI. 3Result Comment: The eGFR is calculated using [...] be mul tiplied by the estimated BMI. 4Interpretive Data: Adult reference range values reflect the clinical guidelines of the [place] [employer]. 5Interpretive Data: Adult reference range values reflect the clinical guidelines of the [place] [employer]. ENDOCRINOLOGY 1 2 3 Most recent to oldest [Reference Range]: Negative *NA* (11/11/14 6:02 AM) S Preg [Negative] URINE AND STOOL 1 2 3 Most recent to oldest [Reference Range]: Turbid *ABN* (11/11/14 6:36 AM) UA Turbidity [Clear] DARK YELLO *NA* (11/11/14 6:36 AM) UA Color 8.5 *HI* (11/11/14 6:36 AM) UA pH [5.0-8.0] 1.020 (11/11/14 6:36 AM) UA Spec Grav [<=1.030] Negative (11/11/14 6:36 AM) UA Glucose [Negative] Large *ABN* (11/11/14 6:36 AM) UA Blood [Negative] 40 mg/dL *ABN* (11/11/14 6:36 AM) UA Ketones [Negative mg/dL] 30 mg/dL *ABN* (11/11/14 6:36 AM) UA Protein [Negative mg/dL] 1.0 EU/dL (11/11/14 6:36 AM) UA Urobilinogen [0.1-1.0 EU/dL] Small *ABN* (11/11/14 6:36 AM) UA Bili [Negative] Negative (11/11/14 6:36 AM) UA Leuk Est [Negative] Negative (11/11/14 6:36 AM) UA Nitrite [Negative] 3-5 /HPF (11/11/14 6:36 AM) UA WBC [None Seen /HPF] >100 /HPF *ABN* (11/11/14 6:36 AM) UA RBC [0-2 /HPF] Few /HPF (11/11/14 6:36 AM) UA Bacteria [None Seen /HPF] Few /LPF (11/11/14 6:36 AM) UA Sq Epi [Few /LPF] Moderate /LPF *ABN* (11/11/14 6:36 AM) UA Mucus [None Seen /LPF] HEMATOLOGY 1 2 3 Most recent to oldest [Reference Range]: 7.3 K/CMM (11/13/14 10:45 AM) 8.8 K/CMM (11/12/14 6:24 AM) 10.1 K/CMM (11/11/14 6:02 AM) WBC [3.7-10.4 K/CMM] 3.88 M/CMM *LOW* (11/13/14 10:45 AM) 3.89 M/CMM *LOW* (11/12/14 6:24 AM) 4.66 M/CMM (11/11/14 6:02 AM) RBC [4.20-5.40 M/CMM] 11.2 g/dL *LOW* (11/13/14 10:45 AM) 11.3 g/dL *LOW* (11/12/14 6:24 AM) 13.4 g/dL (11/11/14 6:02 AM) Hgb [12.0-16.0 g/dL] 33.8 % *LOW* (11/13/14 10:45 AM) 33.6 % *LOW* (11/12/14 6:24 AM) 39.9 % (11/11/14 6:02 AM) Hct [36.0-48.0 %] 87.2 fL (11/13/14 10:45 AM) 86.3 fL (11/12/14 6:24 AM) 85.8 fL (11/11/14 6:02 AM) MCV [80.0-98.0 fL] 28.9 pg (11/13/14 10:45 AM) 29.1 pg (11/12/14 6:24 AM) 28.8 pg (11/11/14 6:02 AM) MCH [27.0-31.0 pg] 33.2 g/dL (11/13/14 10:45 AM) 33.8 g/dL (11/12/14 6:24 AM) 33.6 g/dL (11/11/14 6:02 AM) MCHC [32.0-36.0 g/dL] 17.1 % *HI* (11/13/14 10:45 AM) 17.0 % *HI* (11/12/14 6:24 AM) 17.2 % *HI* (11/11/14 6:02 AM) RDW [11.5-14.5 %] 169 K/CMM (11/13/14 10:45 AM) 157 K/CMM (11/12/14 6:24 AM) 220 K/CMM (11/11/14 6:02 AM) Platelet [133-450 K/CMM] 10.6 fL *HI* (11/13/14 10:45 AM) 10.4 fL (11/12/14 6:24 AM) 10.4 fL (11/11/14 6:02 AM) MPV [7.4-10.4 fL] 60.5 % (11/13/14 10:45 AM) 60.6 % (11/12/14 6:24 AM) 79.8 % *HI* (11/11/14 6:02 AM) Segs [45.0-75.0 %] 28.4 % (11/13/14 10:45 AM) 28.6 % (11/12/14 6:24 AM) 15.3 % *LOW* (11/11/14 6:02 AM) Lymphocytes [20.0-40.0 %] 8.4 % (11/13/14 10:45 AM) 9.3 % (11/12/14 6:24 AM) 4.5 % (11/11/14 6:02 AM) Monocytes [2.0-12.0 %] 2.1 % (11/13/14 10:45 AM) 1.0 % (11/12/14 6:24 AM) 0.2 % (11/11/14 6:02 AM) Eosinophils [0.0-4.0 %] 0.6 % (11/13/14 10:45 AM) 0.5 % (11/12/14 6:24 AM) 0.2 % (11/11/14 6:02 AM) Basophils [0.0-1.0 %] 4.4 K/CMM (11/13/14 10:45 AM) 5.4 K/CMM (11/12/14 6:24 AM) 8.1 K/CMM (11/11/14 6:02 AM) Segs-Bands # [1.5-8.1 K/CMM] 2.1 K/CMM (11/13/14 10:45 AM) 2.5 K/CMM (11/12/14 6:24 AM) 1.5 K/CMM (11/11/14 6:02 AM) Lymphocytes # [1.0-5.5 K/CMM] 0.6 K/CMM (11/13/14 10:45 AM) 0.8 K/CMM (11/12/14 6:24 AM) 0.4 K/CMM (11/11/14 6:02 AM) Monocytes # [0.0-0.8 K/CMM] 0.2 K/CMM (11/13/14 10:45 AM) 0.1 K/CMM (11/12/14 6:24 AM) 0.0 K/CMM (11/11/14 6:02 AM) Eosinophils # [0.0-0.5 K/CMM] 0.0 K/CMM (11/13/14 10:45 AM) 0.0 K/CMM (11/12/14 6:24 AM) 0.0 K/CMM (11/11/14 6:02 AM) Basophils # [0.0-0.2 K/CMM] 15.6 seconds *HI* (11/12/14 6:24 AM) PT [12.0-14.7 seconds] 1.23 6 *HI* (11/12/14 6:24 AM) INR [0.85-1.17] 33.6 seconds 7 (11/12/14 6:24 AM) PTT [22.9-35.8 seconds] 6Interpretive Data: RECOMMENDED RANGES FOR PROTIME INR: 2.0-3.0 for most medical and surgical thromboembolic states. 2.5-3.5 for artificial heart valves and recurrent embolism. INR SHOULD BE USED ONLY FOR PATIENTS ON STABLE ANTICOAGULANT THERAPY. 7Interpretive Data: Heparin Therapeutic Range: 57 - 92 Seconds Immunizations Vaccine Date Refusal Reason pneumococcal 23-valent vaccine1 1/1/13 1Admin Note: Patient only recalled year of pneumococcal vaccine in 2013 does not remember exact month/day. Procedures No data available for this section Social History Social History Type Response Substance Abuse Use: Current. Type: Marijuana. IV drug use: No. Drug use interferes with work/home: No. Ready to change: No. Household substance abuse concerns: No.1 Employment/School Status: Employed. 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 Alcohol Current, Type Beer, Wine. Previous treatment: None.2 Smoking Status Current every day smoker; Exposure to Tobacco Smoke None; Cigarette Smoking Last 365 Days No; Reg Smoking Cessation Counseling No3 1Marijuana everyday use 2Occasional alcohol juse 3Patient state she smokes marijuana everyday Assessment and Plan Extracted from: Title: Discharge Summary Author: Theresa Mi MD Date: 11/13/14 Attending: Theresa Mi MDPhone: Service: Internal Medicine Code status: Full Code [Ordered] Reason for Admission: CHOLECYSTITIIS; HYPOKALEMIA Working DRG: Disorders of the biliary tract w/o CC/SNF Isolation: None Documented Consulting Physicians: Simone Cordero MDOffice: MSO: [id number]: General Surgery Amina Danielle MDOffice: MSO: [id number]: Gastroenterology Theresa Mi MDOffice: MSO: [id number]: Medicine Discharge Summary Discharge Diagnosis: 1. Recurrent Abdominal Pain due to Cholelithiasis/Cholecystitis Comorbidities: Polysubstance Abuse Procedures: None History of Present Illness:A 39-year-old -[place]izen [place] female who comes from home due to having epigastric pain with episodes of nausea and bilious vomiting since 6 p.m. last night. Patient describes the epigastric pain as 8 x 10, crampy and sharp, continuous. It was relieved only with IV pain medications when she received them in the ER. Patient also describes 10 episodes of nausea, vomiting, bilious in nature. No blood was noted. No other symptoms such as diarrhea. No recent travel history. Denies alcohol or drug use prior. Denies eating out recently. Patient states that a month ago, she had similar symptoms, went to the hospital, was told she had gallstones, but as the pain went away no intervention was done and she did not follow up and this is the second time she has had this episode only it is much more worse. She describes some chills, no fever and currently patient's pain is controlled with IV medications, ER physician has called the surgeon for possible cholecystectomy today. We will keep the patient n.p.o. and admit for further care. Laboratory/Data: refer to chart Hospital Course: Patient was evaluated by Surgery --> outpt elective Cholecystectomy. Patient has information about his clinic with follow up in two weeks. GI has also cleared patient. She has no fever, leukocytosis, or abd pain today, tolerating regular diet. I have examined patient at bedside and she will be DC home today. She understands and agrees with the plan. Physical Exam: VS: BP: 105/64 HR: 73 RR: 16 T: 98.1 SaO2:99% RA General: Alert and oriented, No acute distress. Eye: Pupils are equal, round and reactive to light, Normal conjunctiva, Vision unchanged. HENT: Normocephalic, Normal hearing, Oral mucosa is moist, No pharyngeal erythema. Neck: Supple, Non-tender, No carotid bruit, No lymphadenopathy. Respiratory: Lungs are clear to auscultation, Respirations are non-labored, Symmetrical chest wall expansion. Cardiovascular: Normal rate, Regular rhythm, No murmur, Good pulses equal in all extremities, No edema. Gastrointestinal: Soft, Non-tender, Normal bowel sounds. Musculoskeletal Normal range of motion. Normal strength. No tenderness. No swelling. Integumentary: Warm, [place], Intact, No rash. Neurologic: Alert, Oriented, No focal deficits. Discharge Medications: Reviewed. Please refer to Medication Reconciliation Discharged to: Stable Condition: Home Extracted from: Title: Hospitalist Note Author: Theresa Mi MD Date: 11/12/14 Impression and Plan 1. Epigastric pain with nausea and vomiting due to cholelithiasis and possible acute cholecystitis - improving --> No surgical intervention as per Dr. Cordero --> GI consult with Dr. Danielle pending --> DC if cleared by GI --> Patient and I had discussion about out pt follow up with Dr. Cordero for misha ta in 2 weeeks --> she has necessary information 2. Cigar use. Patient has been counseled against it. 3. Marijuana use. Patient has been counseled against it. 4. Hypokalemia. - resolved Full Code
[2018-12-28] MEDS ORDERED: PANTOPRAZOLE 40 MG 10ML VIAL IV STA (10:49)
[2018-12-28] MEDS ORDERED: ONDANSETRON HCL INJ 2MG/ML 2ML 2 MG/ML VIAL IV STA ×2 (10:49→13:11)
[2018-12-28] MEDS ORDERED: SODIUM CHLORIDE 0.9% 1000ML 1,000 ML IV STA (10:49)
[2018-12-28 11:17] LABS: BASOPHILS # (AUTO) 0.1 (0.0-0.1); BASOPHILS % 0.8 % (0.0-1.0); EOSINOPHILS # (AUTO) 0.1 (0.0-0.4); EOSINOPHILS % 0.5 % (0.0-6.0); HEMATOCRIT 40.1 % (34.2-44.1); HEMOGLOBIN 13.4 g/dL (12.0-16.0); LYMPHOCYTES # (AUTO) 2.8 (1.0-3.2); LYMPHOCYTES % 27.5 % (18.0-39.1); MEAN CORPUSCULAR HEMOGLOBIN 26.9 pg (28-32); MEAN CORPUSCULAR HGB CONC 33.4 g/dL (31-35); MEAN CORPUSCULAR VOLUME 80.5 fL (81-99); MONOCYTES # (AUTO) 1.1 (0.2-0.8); MONOCYTES % 10.7 % (4.4-11.3); NEUTROPHILS # (AUTO) 6.2 (2.1-6.9); NEUTROPHILS % 59.9 % (38.7-80.0); PLATELET COUNT 256 x10e3/uL (140-360); RED BLOOD COUNT 4.98 x10e6/uL (3.6-5.1); RED CELL DISTRIBUTION WIDTH 18.3 % (11.7-14.4)
[2018-12-28 11:34] LABS: ALBUMIN 3.6 g/dL (3.5-5.0); ALBUMIN/GLOBULIN RATIO 0.9 (0.8-2.0); ANION GAP 14.9 mmol/L (8-16); CREATININE, SERUM 1.22 mg/dL (0.57-1.11); MAGNESIUM 2.2 MG/DL (1.3-2.1)
[2018-12-28 11:38] LABS: POTASSIUM 2.9 mmol/L (3.5-5.1)
[2018-12-28] MEDS ORDERED: POTASSIUM CHLORIDE 20 MEQ TAB CR PO STA (11:38)
[2018-12-28] MEDS ORDERED: POTASSIUM CHLORIDE 10MEQ/100ML 200 ML IV ONE (11:45)
[2018-12-28] MEDS ORDERED: KCL 20MEQ/.9 SOD CHL 1,000 ML IV ONE (12:00)
[2018-12-28 12:25] LABS: BILIRUBIN,URINE NEGATIVE (NEGATIVE); CLARITY,URINE CLOUDY (CLEAR); COLOR,URINE RED (YELLOW); KETONES,URINE TRACE (NEGATIVE); LEUKOCYTE ESTERASE ,URINE TRACE (NEGATIVE); NITRITE,URINE NEGATIVE (NEGATIVE); PROTEIN,URINE DIPSTICK TRACE (NEGATIVE); URINE UROBILINOGEN 0.2 mg/dL (0.2 - 1)
[2018-12-28 12:29] LABS: PREGNANCY TEST, URINE NEGATIVE (NEGATIVE)
[2018-12-28 12:30] LABS: AMPHETAMINES SCREEN,URINE NEGATIVE (NEGATIVE); BENZODIAZEPINES SCREEN,URINE NEGATIVE (NEGATIVE); PHENCYCLIDINE SCREEN,URINE NEGATIVE (NEGATIVE)
[2018-12-28] MEDS ORDERED: DICYCLOMINE HCL 20 MG/2 ML VIAL IM ONE (13:45)
--- NOTE | 2018-12-28 13:52 | Diagnostic Imaging Report ---
EXAMINATION: CT of the abdomen and pelvis with contrast. TECHNIQUE: Spiral CT images of the abdomen and pelvis were performed from the lung bases to the lesser trochanters after the intravenous administration of 100 cc Isovue-370. Coronal and sagittal reformatted images were available. COMPARISON: None. CLINICAL HISTORY:Nausea, vomiting, upper abdominal pain. DISCUSSION: ABDOMEN/PELVIS: LOWER THORAX:Unremarkable. HEPATOBILIARY: Focal hypoattenuation along the falciform ligament compatible with steatosis. No additional focal hepatic lesion. No intrahepatic biliary dilatation. The gallbladder has been removed. SPLEEN: No splenomegaly. Small splenule along the lower pole. PANCREAS: No focal masses or ductal dilatation. ADRENALS: 1 cm nodule in the lateral limb of the right adrenal gland, average internal attenuation 80 Hounsfield units. No left adrenal nodule. KIDNEYS/URETERS: Subcentimeter hypoattenuating lesion in the lower pole of the left kidney is too small to further characterize but likely representing a small cyst. No hydronephrosis or calculi. PELVIC ORGANS/BLADDER: The bladder is incompletely distended but otherwise unremarkable. The uterus is anteflexed and contains multiple hyperattenuating masses, the largest of which is in the anterior body and measures 2.5 cm (sagittal image 71). No adnexal mass. PERITONEUM/RETROPERITONEUM: Trace free pelvic fluid, average attenuation 5-10 Hounsfield units, likely physiologic. No pneumoperitoneum. LYMPH NODES: No pelvic sidewall, retroperitoneal, or mesenteric lymphadenopathy. VESSELS: The abdominal aorta, major branch vessels, and iliac arterial systems are patent without aneurysmal dilatation. Portal vein, splenic vein, and central superior mesenteric vein are patent. GI TRACT: The large bowel shows no evidence of distention or wall thickening. There are a few descending and sigmoid colon diverticula without wall thickening or adjacent inflammatory change. The appendix is unremarkable. The stomach is collapsed with prominent rugal folds. No small bowel dilatation to suggest obstruction. BONES AND SOFT TISSUE: No osseous destructive lesions. No focal soft tissue abnormalities. IMPRESSION: No acute intra-abdominal or pelvic CT abnormalities. 1 cm right adrenal nodule is indeterminate though statistically likely to represent an adenoma. Definitive characterization with CT or MRI of the abdomen with and without contrast (adrenal mass protocol) is suggested. Large bowel diverticulosis without evidence of diverticulitis. Multifibroid uterus. Signed by: Dr. Candelario Kam M.D. on 12/28/2018 1:49 PM
[2018-12-28] MEDS ORDERED: ACETAMINOPHEN 325 MG TAB PO ONE (14:00)
[2018-12-28 14:11] LABS: BACTERIA,URINE MODERATE /HPF; EPITHELIAL CELLS,URINE FEW /LPF; WBC,URINE (MAN) 0-5 /HPF (0-5)
[2018-12-28] MEDS ORDERED: MACRODANTIN100 MG PO (14:23)
[2018-12-28] MEDS ORDERED: ZOFRAN4 MG SL (14:23)
[2018-12-28 14:41] VITALS: BP 120/78
[2018-12-28] MEDS ORDERED: IOPAMIDOL 370 MG/ML 200 ML INFUS..BTL INJ ONE (18:45)
[2018-12-28] MEDS ORDERED: SODIUM CHLORIDE 0.9% 50ML 50 ML ONE (18:45)
== END 2018-12-28 14:40 | disposition home or self-care (01) ==
LOC: ER 10:30
DX: R11.2 Nausea with vomiting, unspecified (principal); R10.13 Epigastric pain; N30.91 Cystitis, unspecified with hematuria
CPT/HCPCS: 36415; 74177; 80053; 80307; 81001; 81025; 82150; 83690; 83735; 85025; 96374; 96375; 99284; C9113; J2405; J7030; Q9967; J0500

== ENCOUNTER 2019-01-04 12:03 | Emergency (ER) | payer SELFPAY ==
[~2019-01-04] VITALS: Ht 172.7 cm; Wt 102.5 kg
[~2019-01-04 12:03] MED LIST: MACRODANTIN100 MG PO; ZOFRAN4 MG SL
--- OUTSIDE RECORDS SUMMARY | 2019-01-04 12:06 | XMS REPORT | Continuity of Care Document ---
Author Author [facility] Address Unknown Phone Unavailable Care Team Providers Care Recreation Manager Name Role Phone [employer] Unavailable Unavailable Problems Problem Status Onset Date Classification Date Reported Comments Source Acute chest pain 08/15/2018 08/18/2018 [facility] CHEST PAIN,VOMIT Active 08/15/2018 [facility] Unspecified injury of head, initial encounter 10/07/2017 01/06/2018 [facility] Minor head injury 09/30/2017 01/06/2018 [facility] FALL KNOT ON HEAD Active 09/29/2017 [facility] Discharge Diagnosis: Nausea & vomiting 02/19/2015 02/22/2015 [facility] Discharge Diagnosis: Abdominal discomfort, epigastric 02/19/2015 02/22/2015 [facility] HIGH BLOOD PRESSURE, CHEST PAIN, NUMBNES Active 02/19/2015 [facility] CHOLECYSTITIIS; HYPOKALEMIA Active 11/11/2014 [facility] NAUSEA, VOMITING Active 11/11/2014 [facility] Other fall on same level, initial encounter 01/06/2018 [facility] CHOLECYSTITIS NOS Active [facility] Medications Medication Details Route Status Patient Instructions Ordering Provider Order Date Source GI cocktail (aluminum hydroxide/magnesium hydroxide/lidocaine/simethicone) 30 mL, Route: PO, Drug Form: SUSP, Dosing Weight 107.273, kg, ONCE, STAT, Start date: 08/15/18 7:55:00 [employer], Stop date: 08/15/18 7:55:00 CSTNotes: G.I. Cocktail - aluminum hydroxide/magnesium hydroxid e/lidocaine/simethicone Inactive 08/15/2018 [facility] Ondansetron 4 mg, 2 mL, Route: IVP, Drug form: INJ, ONCE, Dosing Weight 107.273, kg, Priority: STAT, Start date: 08/15/18 7:54:00 [employer], Stop date: 08/15/18 7:54:00 CSTNotes: (Same as: Madisyn) MEDICATION WASTE Product Size: 4 mg Product Wasted: ___ mg Inactive 08/15/2018 [facility] Saline Flush 0.9% 10 mL, Route: IVP, Drug Form: INJ, Dosing Weight 107.273, kg, PRN, PRN Line Flush, Start date: 08/15/18 7:54:00 [employer], Duration: 30 day, Stop date: 09/14/18 7:53:00 [...] RT DOCUMENTATION (Same as: Proventil) Inactive 02/19/2015 [facility] Saline Flush 0.9% 10 mL, Route: IVP, Drug Form: INJ, Dosing Weight 73.636, kg, PRN, PRN Line Flush, Start date: 02/19/15 9:24:00, Duration: 30 day, Stop date: 03/21/15 9:23:00Notes: Same as: BD Posiflush Sterile Inactive 02/19/2015 [facility] Sodium Chloride 0.154 MEQ/ML Injectable Solution 1,000 mL, 1000 ml/hr, Infuse Over: 1 hr, Route: IV, 1,000, Drug form: INJ, ONCE, Priority: STAT, Dosing Weight 73.636 kg, Start date: 02/19/15 9:24:00, Duration: 1 doses or times, Stop date: 02/19/15 9:24:00 Inactive 02/19/2015 [facility] Ketorolac 30 mg, 1 mL, Route: IVP, Drug form: INJ, ONCE, Dosing Weight 73.636, kg, Priority: STAT, Start date: 02/19/15 9:24:00, Stop date: 02/19/15 9:24:00Notes: (Same as:Toradol) IV bolus must be given >15 seconds. Give IM administration slowly and deeply into the muscle. Not for use > 4 days MEDICATION WASTE Product Size: 30 mg Product Wasted: ___ mg Inactive 02/19/2015 [facility] Ondansetron 4 mg, 2 mL, Route: IVP, Drug form: INJ, ONCE, Dosing Weight 73.636, kg, Priority: STAT, Start date: 02/19/15 9:24:00, Stop date: 02/19/15 9:24:00Notes: (Same as: Zofran) MEDICATION WASTE Pr oduct Size: 4 mg Product Wasted: ___ mg Inactive 02/19/2015 [facility] Famotidine 20 mg, 2 mL, Route: IVP, [...] day, Stop date: 12/11/14 21:56:00 Inactive 11/12/2014 [facility] Ciprofloxacin 2 MG/ML Injectable Solution [...] 2 mL, Route: IVP, Drug form: INJ, [id number], Start date: 11/11/14 18:00:00, Duration: 30 day, [...] ___ mg No Longer Active 11/11/2014 [facility] potassium chloride 40 mEq, 2 tab, Route: [...] 11/11/14 6:27:00Notes: (Same as:MORPhine Sulfate) Inactive 11/11/2014 [facility] Zofran 4 mg, 2 mL, Route: IVP, Drug form: INJ, ONCE, Dosing Weight 78.182, kg, Start date: 11/11/14 6:20:00, Stop date: 11/11/14 6:20:00Notes: (Same as: Zofran) MEDICATION WASTE Product Size: 4 mg Product Wasted: ___ mg Inactive 11/11/2014 [facility] Sodium Chloride 0.154 MEQ/ML Injectable Solution 1,000 mL, 1,000 ml/hr, Infuse Over: 1 hr, Route: IV, 1,000, Drug form: INJ, ONCE, Priority: STAT, Dosing Weight 78.182 kg, Start date: 11/11/14 6:20:00, Duration: 1 doses or times, Stop date: 11/11/14 6:20:00 Inactive 11/11/2014 [facility] Allergies, Adverse Reactions, Alerts Substance Category Reaction Severity Reaction type Status Date Reported Comments Source codeine Assertion Drug allergy Active [facility] iodine Assertion Mild Drug allergy Active [facility] shellfish<sup>1</sup> Assertion Moderate Food allergy Active Patient state she swells up and her airway closes when eating shellfish i.e shrimp and crab [facility] Immunizations Immunization Date Given Site Status Last Updated Comments Source pneumococcal 23-valent vaccine<sup>1</sup> 07/11/2012 completed [facility] Admin Note: Patient only recalled year of pneumococcal vaccine in 2012 does not remember exact month/day. [facility] Results Order Name Results Value Reference Range Date Interpretation Comments Source CARDIAC ENZYMES Troponin-I <0.02 0.00 - 0.40 08/15/2018 [facility] CARDIAC ENZYMES Total CK 321 12 - 191 08/15/2018 [facility] CHEM PANEL B/C Ratio 7 6 - 25 08/15/2018 [facility] CHEM PANEL Globulin 4.7 2.7 - 4.2 08/15/2018 [facility] CHEM PANEL A/G Ratio 0.8 0.7 - 1.6 08/15/2018 [facility] CHEM PANEL AGAP 7.1 10.0 - 20.0 08/15/2018 [facility] CHEM PANEL eGFR 74 08/15/2018 Result Comment: The eGFR is calculated [...] should be multiplied by the estimated BMI. [facility] CHEM PANEL Bili Total 0.3 0.2 - 1.3 08/15/2018 [facility] CHEM PANEL Calcium Lvl 9.0 8.5 - 10.5 08/15/2018 [facility] CHEM PANEL CO2 29 24 - 32 08/15/2018 [facility] CHEM PANEL AST 19 0 - 37 08/15/2018 [facility] CHEM PANEL Total Protein 8.3 6.4 - 8.4 08/15/2018 [facility] CHEM PANEL Chloride Lvl 106 95 - 109 08/15/2018 [facility] CHEM PANEL Albumin Lvl 3.6 3.5 - 5.0 08/15/2018 [facility] CHEM PANEL ALT 31 0 - 65 08/15/2018 [facility] CHEM PANEL Alk Phos 108 39 - 136 08/15/2018 [facility] CHEM PANEL Glucose Lvl 126 70 - 99 08/15/2018 [facility] CHEM PANEL BUN 7 7 - 22 08/15/2018 [facility] CHEM PANEL Creatinine Lvl 1.07 0.50 - 1.40 08/15/2018 [facility] CHEM PANEL Sodium Lvl 139 135 - 145 08/15/2018 [facility] CHEM PANEL Potassium Lvl 3.1 3.5 - 5.1 08/15/2018 [facility] HEMATOLOGY Hct 40.3 36.0 - 48.0 08/15/2018 [facility] HEMATOLOGY RBC 4.88 4.20 - 5.40 08/15/2018 [facility] HEMATOLOGY MCV 82.6 80.0 - 98.0 08/15/2018 [facility] HEMATOLOGY Hgb 13.0 12.0 - 16.0 08/15/2018 [facility] HEMATOLOGY MCH 26.6 27.0 - 31.0 08/15/2018 [facility] HEMATOLOGY WBC 8.5 3.7 - 10.4 08/15/2018 [facility] HEMATOLOGY RDW 19.1 11.5 - 14.5 08/15/2018 [facility] HEMATOLOGY Platelet 253 133 - 450 08/15/2018 [facility] HEMATOLOGY MCHC 32.2 32.0 - 36.0 08/15/2018 [facility] HEMATOLOGY MPV 9.8 7.4 - 10.4 08/15/2018 [facility] HEMATOLOGY Basophils 0.5 0.0 - 1.0 08/15/2018 [facility] HEMATOLOGY Lymphocytes # 0.9 1.0 - 5.5 08/15/2018 [facility] HEMATOLOGY Neutrophils # 7.3 1.5 - 8.1 08/15/2018 [facility] HEMATOLOGY Monocytes # 0.3 0.0 - 0.8 08/15/2018 [facility] HEMATOLOGY Eosinophils 0.1 0.0 - 4.0 08/15/2018 [facility] HEMATOLOGY Monocytes 3.1 2.0 - 12.0 08/15/2018 [facility] HEMATOLOGY Lymphocytes 10.7 20.0 - 40.0 08/15/2018 [facility] HEMATOLOGY Segs 85.6 45.0 - 75.0 08/15/2018 [facility] URINE AND STOOL UA Sq Epi Few /LPF Few /LPF 02/19/2015 [facility] URINE AND STOOL UA WBC 0-2 /HPF None Seen /HPF 02/19/2015 [facility] URINE AND STOOL UA RBC 0-2 /HPF 0 - 2 02/19/2015 [facility] URINE AND STOOL UA Bacteria Few /HPF None Seen /HPF 02/19/2015 [facility] URINE AND STOOL UA Nitrite Negative (02/19/15 2:14 PM) Negative 02/19/2015 [facility] URINE AND STOOL UA Leuk Est Negative (02/19/15 2:14 PM) Negative 02/19/2015 [facility] URINE AND STOOL Micro? Performed (02/19/15 2:14 PM) 02/19/2015 [facility] URINE AND STOOL UA Bili Small 2 *ABN* (02/19/15 2:14 PM) Negative 02/19/2015 Result Comment: Interpret positive bilirubin results with caution. Confirmatory testing
not possible due to the unavailability of reagent. Correlation with
serum chemistry results recommended. [facility] URINE AND STOOL UA Urobilinogen 1.0 0.1 - 1.0 02/19/2015 [facility] URINE AND STOOL UA Blood Trace *ABN* (02/19/15 2:14 PM) Negative 02/19/2015 [facility] URINE AND STOOL UA Protein Trace *ABN* (02/19/15 2:14 PM) Negative 02/19/2015 [facility] URINE AND STOOL UA Glucose Negative (02/19/15 2:14 PM) Negative 02/19/2015 [facility] URINE AND STOOL UA Ketones 40 mg/dL Negative mg/dL 02/19/2015 [facility] URINE AND STOOL UA Mucus None Seen (02/19/15 2:14 PM) None Seen 02/19/2015 [facility] URINE AND STOOL UA Turbidity Clear (02/19/15 2:14 PM) Clear 02/19/2015 [facility] URINE AND STOOL UA Spec Grav 1.025 <=1.030 02/19/2015 [facility] URINE AND STOOL UA pH 6.0 5.0 - 8.0 02/19/2015 [facility] URINE AND STOOL UA Color Yellow *NA* (02/19/15 2:14 PM) Yellow 02/19/2015 [facility] CHEM PANEL eGFR 73 02/19/2015 Result Comment: The eGFR is calculated [...] should be multiplied by the estimated BMI. [facility] CHEM PANEL ALT 26 0 - 65 02/19/2015 [facility] CHEM PANEL Albumin Lvl 3.7 3.5 - 5.0 02/19/2015 [facility] CHEM PANEL Alk Phos 82 39 - 136 02/19/2015 [facility] CHEM PANEL Bili Total 0.6 0.2 - 1.3 02/19/2015 [facility] CHEM PANEL AST 19 0 - 37 02/19/2015 [facility] CHEM PANEL Glucose Lvl 85 70 - 99 02/19/2015 [facility] CHEM PANEL Sodium Lvl 141 135 - 145 02/19/2015 [facility] CHEM PANEL Creatinine Lvl 1.1 0.5 - 1.4 02/19/2015 [facility] CHEM PANEL BUN 13 7 - 22 02/19/2015 [facility] CHEM PANEL Chloride Lvl 106 95 - 109 02/19/2015 [facility] CHEM PANEL CO2 21 24 - 32 02/19/2015 [facility] CHEM PANEL Potassium Lvl 3.6 3.5 - 5.1 02/19/2015 [facility] CHEM PANEL Total Protein 7.6 6.4 - 8.4 02/19/2015 [facility] CHEM PANEL Calcium Lvl 8.8 8.5 - 10.5 02/19/2015 [facility] CHEM PANEL B/C Ratio 12 6 - 25 02/19/2015 [facility] CHEM PANEL Globulin 3.9 2.0 - 4.0 02/19/2015 [facility] CHEM PANEL A/G Ratio 0.9 0.7 - 1.6 02/19/2015 [facility] CHEM PANEL AGAP 17.6 10.0 - 20.0 02/19/2015 [facility] CHEM PANEL Lipase Lvl 87 73 - 393 02/19/2015 [facility] HEMATOLOGY Eosinophils # 0.0 0.0 - 0.5 02/19/2015 [facility] HEMATOLOGY Basophils # 0.1 0.0 - 0.2 02/19/2015 [facility] HEMATOLOGY Monocytes # 0.9 0.0 - 0.8 02/19/2015 [facility] HEMATOLOGY Lymphocytes # 2.0 1.0 - 5.5 02/19/2015 [facility] HEMATOLOGY Basophils 0.8 0.0 - 1.0 02/19/2015 [facility] HEMATOLOGY Segs-Bands # 8.3 1.5 - 8.1 02/19/2015 [facility] HEMATOLOGY Monocytes 7.9 2.0 - 12.0 02/19/2015 [facility] HEMATOLOGY Eosinophils 0.1 0.0 - 4.0 02/19/2015 [facility] HEMATOLOGY Segs 73.3 45.0 - 75.0 02/19/2015 [facility] HEMATOLOGY Lymphocytes 17.9 20.0 - 40.0 02/19/2015 [facility] HEMATOLOGY MPV 10.7 7.4 - 10.4 02/19/2015 [facility] HEMATOLOGY Platelet 209 133 - 450 02/19/2015 [facility] HEMATOLOGY MCV 85.8 80.0 - 98.0 02/19/2015 [facility] HEMATOLOGY MCH 28.7 27.0 - 31.0 02/19/2015 [facility] HEMATOLOGY MCHC 33.4 32.0 - 36.0 02/19/2015 [facility] HEMATOLOGY RDW 17.7 11.5 - 14.5 02/19/2015 [facility] HEMATOLOGY WBC 11.4 3.7 - 10.4 02/19/2015 [facility] HEMATOLOGY RBC 4.54 4.20 - 5.40 02/19/2015 [facility] HEMATOLOGY Hgb 13.0 12.0 - 16.0 02/19/2015 [facility] HEMATOLOGY Hct 39.0 36.0 - 48.0 02/19/2015 [facility] IMMUNOLOGY CDC HIV 4th GEN Negative (02/19/15 10:37 AM) Negative 02/19/2015 [facility] CARDIAC ENZYMES CK-MB INDEX 0.29 0.0 - 2.5 02/19/2015 [facility] CARDIAC ENZYMES CK MB 0.6 0.5 - 3.6 02/19/2015 [facility] CARDIAC ENZYMES Total CK 206 12 - 191 02/19/2015 [facility] CARDIAC ENZYMES Troponin-I <0.015 ng/mL 0.00 - 0.40 02/19/2015 [facility] ENDOCRINOLOGY S Preg Negative (02/19/15 10:34 AM) Negative 02/19/2015 [facility] HEMATOLOGY Basophils # 0.0 0.0 - 0.2 11/13/2014 [facility] HEMATOLOGY Lymphocytes # 2.1 1.0 - 5.5 11/13/2014 [facility] HEMATOLOGY Monocytes # 0.6 0.0 - 0.8 11/13/2014 [facility] HEMATOLOGY Eosinophils # 0.2 0.0 - 0.5 11/13/2014 [facility] HEMATOLOGY Monocytes 8.4 2.0 - 12.0 11/13/2014 [facility] HEMATOLOGY Lymphocytes 28.4 20.0 - 40.0 11/13/2014 [facility] HEMATOLOGY Segs-Bands # 4.4 1.5 - 8.1 11/13/2014 [facility] HEMATOLOGY Basophils 0.6 0.0 - 1.0 11/13/2014 [facility] HEMATOLOGY Eosinophils 2.1 0.0 - 4.0 11/13/2014 [facility] HEMATOLOGY Segs 60.5 45.0 - 75.0 11/13/2014 [facility] HEMATOLOGY MPV 10.6 7.4 - 10.4 11/13/2014 [facility] HEMATOLOGY RDW 17.1 11.5 - 14.5 11/13/2014 [facility] HEMATOLOGY MCHC 33.2 32.0 - 36.0 11/13/2014 [facility] HEMATOLOGY Platelet 169 133 - 450 11/13/2014 [facility] HEMATOLOGY Hct 33.8 36.0 - 48.0 11/13/2014 [facility] HEMATOLOGY Hgb 11.2 12.0 - 16.0 11/13/2014 [facility] HEMATOLOGY MCH 28.9 27.0 - 31.0 11/13/2014 [facility] HEMATOLOGY MCV 87.2 80.0 - 98.0 11/13/2014 [facility] HEMATOLOGY RBC 3.88 4.20 - 5.40 11/13/2014 [facility] HEMATOLOGY WBC 7.3 3.7 - 10.4 11/13/2014 [facility] CHEM PANEL Phosphorus 2.9 2.5 - 4.5 11/12/2014 [facility] CHEM PANEL Magnesium Lvl 1.9 1.8 - 2.4 11/12/2014 [facility] CHEM PANEL A/G Ratio 1.0 0.7 - 1.6 11/12/2014 [facility] CHEM PANEL Globulin 2.7 2.0 - 4.0 11/12/2014 [facility] CHEM PANEL B/C Ratio 3 6 - 25 11/12/2014 [facility] CHEM PANEL AGAP 11.8 10.0 - 20.0 11/12/2014 [facility] CHEM PANEL eGFR 73 11/12/2014 <sup>2</sup>Result Comment: The eGFR is calculated using the CKD-EPI formula. In most young, healthy individuals the eGFR will be >90 mL/min/1.73m2. The eGFR declines with age. An eGFR of 60-89 may be normal in some populations, particularly the elderly, for whom the CKD-EPI formula has not been extensively validated. Use of the eGFR is not recommended in the following populations:& lt;br/>
Individuals with unstable creatinine concentrations, including patients [...] should be multiplied by the estimated BMI. [facility] CHEM PANEL Chloride Lvl 111 95 - 109 11/12/2014 [facility] CHEM PANEL Calcium Lvl 8.2 8.5 - 10.5 11/12/2014 [facility] CHEM PANEL CO2 25 24 - 32 11/12/2014 [facility] CHEM PANEL Potassium Lvl 3.8 3.5 - 5.1 11/12/2014 [facility] CHEM PANEL Sodium Lvl 144 135 - 145 11/12/2014 [facility] CHEM PANEL Alk Phos 76 39 - 136 11/12/2014 [facility] CHEM PANEL Bili Total 0.5 0.2 - 1.3 11/12/2014 [facility] CHEM PANEL Total Protein 5.4 6.4 - 8.4 11/12/2014 [facility] CHEM PANEL Albumin Lvl 2.7 3.5 - 5.0 11/12/2014 [facility] CHEM PANEL AST 56 0 - 37 11/12/2014 [facility] CHEM PANEL ALT 41 0 - 65 11/12/2014 [facility] CHEM PANEL BUN 3 7 - 22 11/12/2014 [facility] CHEM PANEL Creatinine Lvl 1.1 0.5 - 1.4 11/12/2014 [facility] CHEM PANEL Glucose Lvl 107 70 - 99 11/12/2014 <sup>4</sup>Interpretive Data: Adult reference range values reflect the clinical guidelines
of the [place] [employer]. [facility] HEMATOLOGY Eosinophils # 0.1 0.0 - 0.5 11/12/2014 [facility] HEMATOLOGY Basophils # 0.0 0.0 - 0.2 11/12/2014 [facility] HEMATOLOGY Lymphocytes # 2.5 1.0 - 5.5 11/12/2014 [facility] HEMATOLOGY Monocytes # 0.8 0.0 - 0.8 11/12/2014 [facility] HEMATOLOGY Lymphocytes 28.6 20.0 - 40.0 11/12/2014 [facility] HEMATOLOGY Segs 60.6 45.0 - 75.0 11/12/2014 [facility] HEMATOLOGY Monocytes 9.3 2.0 - 12.0 11/12/2014 [facility] HEMATOLOGY Segs-Bands # 5.4 1.5 - 8.1 11/12/2014 [facility] HEMATOLOGY Basophils 0.5 0.0 - 1.0 11/12/2014 [facility] HEMATOLOGY Eosinophils 1.0 0.0 - 4.0 11/12/2014 [facility] HEMATOLOGY RDW 17.0 11.5 - 14.5 11/12/2014 [facility] HEMATOLOGY MCHC 33.8 32.0 - 36.0 11/12/2014 [facility] HEMATOLOGY Hct 33.6 36.0 - 48.0 11/12/2014 [facility] HEMATOLOGY WBC 8.8 3.7 - 10.4 11/12/2014 [facility] HEMATOLOGY Hgb 11.3 12.0 - 16.0 11/12/2014 [facility] HEMATOLOGY RBC 3.89 4.20 - 5.40 11/12/2014 [facility] HEMATOLOGY MPV 10.4 7.4 - 10.4 11/12/2014 [facility] HEMATOLOGY MCH 29.1 27.0 - 31.0 11/12/2014 [facility] HEMATOLOGY MCV 86.3 80.0 - 98.0 11/12/2014 [facility] HEMATOLOGY Platelet 157 133 - 450 11/12/2014 [facility] HEMATOLOGY PTT 33.6 22.9 - 35.8 11/12/2014 <sup>7</sup>Interpretive Data: Heparin Therapeutic Range: 57 - 92 Seconds [facility] HEMATOLOGY INR 1.23 0.85 - 1.17 11/12/2014 <sup>6</sup>Interpretive Data: RECOMMENDED RANGES FOR PROTIME INR:
2.0-3.0 for most medical and surgical thromboembolic states.
2.5-3.5 for artificial heart valves and recurrent embolism.

INR SHOULD BE USED ONLY FOR PATIENTS ON STABLE ANTICOAGULANT THERAPY. [facility] HEMATOLOGY PT 15.6 12.0 - 14.7 11/12/2014 [facility] URINE AND STOOL UA Turbidity Turbid *ABN* (11/11/14 6:36 AM) Clear 11/11/2014 [facility] URINE AND STOOL UA pH 8.5 5.0 - 8.0 11/11/2014 [facility] URINE AND STOOL UA Protein 30 mg/dL Negative mg/dL 11/11/2014 [facility] URINE AND STOOL UA Spec Grav 1.020 <=1.030 11/11/2014 [facility] URINE AND STOOL UA Color DARK YELLO 11/11/2014 [facility] URINE AND STOOL UA Leuk Est Negative (11/11/14 6:36 AM) Negative 11/11/2014 [facility] URINE AND STOOL UA Bili Small *ABN* (11/11/14 6:36 AM) Negative 11/11/2014 [facility] URINE AND STOOL UA Ketones 40 mg/dL Negative mg/dL 11/11/2014 [facility] URINE AND STOOL UA Glucose Negative (11/11/14 6:36 AM) Negative 11/11/2014 [facility] URINE AND STOOL UA Nitrite Negative (11/11/14 6:36 AM) Negative 11/11/2014 [facility] URINE AND STOOL UA Urobilinogen 1.0 0.1 - 1.0 11/11/2014 [facility] URINE AND STOOL UA Blood Large *ABN* (11/11/14 6:36 AM) Negative 11/11/2014 [facility] URINE AND STOOL UA Mucus Moderate /LPF None Seen /LPF 11/11/2014 [facility] URINE AND STOOL UA RBC >100 /HPF 0 - 2 11/11/2014 [facility] URINE AND STOOL UA Bacteria Few /HPF None Seen /HPF 11/11/2014 [facility] URINE AND STOOL UA Sq Epi Few /LPF Few /LPF 11/11/2014 [facility] URINE AND STOOL UA WBC 3-5 /HPF None Seen /HPF 11/11/2014 [facility] CHEM PANEL Lipase Lvl 261 73 - 393 11/11/2014 [facility] CHEM PANEL eGFR 66 11/11/2014 <sup>3</sup>Result Comment: The eGFR is calculated using the CKD-EPI formula. In most young, healthy individuals the eGFR will be >90 mL/min/1.73m2. The eGFR declines with age. An eGFR of 60-89 may be normal in some populations, particularly the elderly, for whom the CKD-EPI formula has not been extensively validated. Use of the eGFR is not recommended in the following populations:& lt;br/>
Individuals with unstable creatinine concentrations, including patients [...] should be multiplied by the estimated BMI. [facility] CHEM PANEL Glucose Lvl 121 70 - 99 11/11/2014 <sup>5</sup>Interpretive Data: Adult reference range values reflect the clinical guidelines
of the [place] [employer]. [facility] CHEM PANEL Bili Total 0.7 0.2 - 1.3 11/11/2014 [facility] CHEM PANEL ALT 19 0 - 65 11/11/2014 [facility] CHEM PANEL A/G Ratio 0.9 0.7 - 1.6 11/11/2014 [facility] CHEM PANEL Globulin 3.9 2.0 - 4.0 11/11/2014 [facility] CHEM PANEL Alk Phos 91 39 - 136 11/11/2014 [facility] CHEM PANEL AST 24 0 - 37 11/11/2014 [facility] CHEM PANEL B/C Ratio 6 6 - 25 11/11/2014 [facility] CHEM PANEL Albumin Lvl 3.6 3.5 - 5.0 11/11/2014 [facility] CHEM PANEL Total Protein 7.5 6.4 - 8.4 11/11/2014 [facility] CHEM PANEL Potassium Lvl 2.6 3.5 - 5.1 11/11/2014 <sup>1</sup>Result Comment: Critical Result(s) called to Diana MCCULLOUGH at _11/11/2014 06:45 by_CP. Read back OK. [facility] CHEM PANEL Calcium Lvl 8.7 8.5 - 10.5 11/11/2014 [facility] CHEM PANEL AGAP 11.6 10.0 - 20.0 11/11/2014 [facility] CHEM PANEL CO2 25 24 - 32 11/11/2014 [facility] CHEM PANEL Chloride Lvl 105 95 - 109 11/11/2014 [facility] CHEM PANEL Sodium Lvl 139 135 - 145 11/11/2014 [facility] CHEM PANEL Creatinine Lvl 1.2 0.5 - 1.4 11/11/2014 [facility] CHEM PANEL BUN 7 7 - 22 11/11/2014 [facility] ENDOCRINOLOGY S Preg Negative *NA* (11/11/14 6:02 AM) Negative 11/11/2014 [facility] HEMATOLOGY Monocytes # 0.4 0.0 - 0.8 11/11/2014 [facility] HEMATOLOGY Basophils 0.2 0.0 - 1.0 11/11/2014 [facility] HEMATOLOGY Segs-Bands # 8.1 1.5 - 8.1 11/11/2014 [facility] HEMATOLOGY Lymphocytes # 1.5 1.0 - 5.5 11/11/2014 [facility] HEMATOLOGY Monocytes 4.5 2.0 - 12.0 11/11/2014 [facility] HEMATOLOGY Eosinophils 0.2 0.0 - 4.0 11/11/2014 [facility] HEMATOLOGY Lymphocytes 15.3 20.0 - 40.0 11/11/2014 [facility] HEMATOLOGY Segs 79.8 45.0 - 75.0 11/11/2014 [facility] HEMATOLOGY Basophils # 0.0 0.0 - 0.2 11/11/2014 [facility] HEMATOLOGY Eosinophils # 0.0 0.0 - 0.5 11/11/2014 [facility] HEMATOLOGY MPV 10.4 7.4 - 10.4 11/11/2014 [facility] HEMATOLOGY RDW 17.2 11.5 - 14.5 11/11/2014 [facility] HEMATOLOGY Platelet 220 133 - 450 11/11/2014 [facility] HEMATOLOGY Hct 39.9 36.0 - 48.0 11/11/2014 [facility] HEMATOLOGY MCV 85.8 80.0 - 98.0 11/11/2014 [facility] HEMATOLOGY MCH 28.8 27.0 - 31.0 11/11/2014 [facility] HEMATOLOGY MCHC 33.6 32.0 - 36.0 11/11/2014 [facility] HEMATOLOGY WBC 10.1 3.7 - 10.4 11/11/2014 [facility] HEMATOLOGY RBC 4.66 4.20 - 5.40 11/11/2014 [facility] HEMATOLOGY Hgb 13.4 12.0 - 16.0 11/11/2014 [facility] Pathology Reports No Data Provided for This Section Diagnostic Reports Report Value Date Source Chest 1view DX PROCEDURE: Chest, AP on [...] evidence for an acute cardiopulmonary process. SL: [id number] 08/15/2018 [facility] Spine cervical 2 or 3 view DX Study: Cervical spine, 3 views Clinical Indication: - neck pain; post fall yesterday Comparison: None FINDINGS: AP, lateral and odontoid images demonstrate a straightened cervical curve. No fracture is evident. Intervertebral disc spaces are maintained. There are tiny marginal osteophytes at C5-C6. Prevertebral soft tissues are normal. IMPRESSION: No acute abnormality. Straightened cervical curve. SL: [id number] 09/30/2017 [facility] Brain wo contrast CT EXAM: CT BRAIN [...] may be performed for complete assessment. SL: [id number] 09/30/2017 [facility] Abdomen acute series w chest 1 view [...] is present. Vascular calcification pelvis. SL:12 02/19/2015 [facility] Consultation Notes No Data Provided for This Section Discharge Summaries No Data Provided for This Section History and Physicals No Data Provided for This Section Vital Signs Vital Sign Value Date Comments Source Systolic (mm Hg) 160 08/15/2018 [facility] Diastolic (mm Hg) 89 08/15/2018 [facility] Respitory Rate 31 08/15/2018 [facility] Systolic (mm Hg) 144 08/15/2018 [facility] Diastolic (mm Hg) 98 08/15/2018 [facility] Respitory Rate 22 08/15/2018 [facility] Respitory Rate 23 08/15/2018 [facility] Heart Rate 68 08/15/2018 [facility] Temperature Oral (F) 98.1 F 08/15/2018 [facility] Height 172.72 cm 08/15/2018 [facility] BMI Calculated 35.96 08/15/2018 [facility] Weight 107.273 08/15/2018 [facility] Systolic (mm Hg) 159 08/15/2018 [facility] Diastolic (mm Hg) 102 08/15/2018 [facility] Temperature Oral (F) 97.9 F 09/30/2017 [facility] Systolic (mm Hg) 137 09/30/2017 [facility] Diastolic (mm Hg) 85 09/30/2017 [facility] Heart Rate 73 09/30/2017 [facility] Respitory Rate 18 09/30/2017 [facility] Systolic (mm Hg) 142 09/30/2017 [facility] [...] 11/13/2014 [facility] Heart Rate 75 11/13/2014 [facility] Respitory Rate 20 11/13/2014 [facility] Systolic (mm Hg) 134 11/13/2014 [facility] Diastolic (mm Hg) 71 11/13/2014 [facility] Temperature Oral (F) 97.8 F 11/13/2014 [facility] Temperature Oral (F) 98.2 F 11/13/2014 [facility] Weight 81.847 11/12/2014 [facility] Height 172.72 cm 11/12/2014 [facility] BMI Calculated 27.44 11/12/2014 [facility] BMI Calculated 26.21 11/11/2014 [facility] Weight 78.182 11/11/2014 [facility] Height 172.72 cm 11/11/2014 [facility] Encounters Location Location Details Encounter Type Encounter Number Reason For Visit Attending Provider ADM Date DC Date Status Source [facility] Inpatient [id number] Theresa Mi 11/11/2014 11/13/2014 [facility] [id number] Arlene Barrientos 02/19/2015 02/19/2015 [facility] Emergency [id number] Herb Rolon 09/30/2017 09/30/2017 [facility] Emergency [id number] Suraj Campos 08/15/2018 08/15/2018 [facility] Procedures No Data Provided for This Section Assessment and Plan Assessment and Plan Date Source Extracted from:Title: Discharge Summary Author: Theresa Mi MD Date: 11/13/14 Attending: Theresa Mi MD Service: Internal Medicine Code status: Full Code [Ordered] Reason for Admission: CHOLECYSTITIIS; HYPOKALEMIA Working DRG: Disorders of the biliary tract w/o CC/SENIOR CARE Isolation: None Documented Consulting Physicians: Simone Cordero MD Office: MSO: [id number] Service: General Surgery Amina Danielle MD Office: MSO: [id number] Service: Gastroenterology Theresa Mi MD Office: MSO: [id number] Service: Medicine Discharge Summary Discharge Diagnosis: 1. Recurrent Abdominal Pain due to Cholelithiasis/Cholecystitis Comorbidities: Polysubstance Abuse Procedures: None History of Present Illness:A 39-year-old -[place] female who comes from home due to [...] strength. No tenderness. No swelling. Integumentary: Warm, [place], Intact, No rash. Neurologic: Alert, Oriented, No focal deficits. Discharge Medications: Reviewed. Please refer to Medication Reconciliation Discharged to: Stable Condition: Home Extracted from:Title: Hospitalist Note Author: Theresa Mi MD Date: [...] it. 4. Hypokalemia. - resolved Full Code 11/13/2014 [facility] Plan of Care No Data Provided for This Section Social History Social History Date Source Social History TypeResponse Substance Abuse Use: Current. Type: Marijuana. IV drug use: No. Drug use interferes with work/home: No. Ready to change: No. Household substance abuse concerns: No.1 Employment/School Status: Employed. 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 Alcohol Current, Type Beer, Wine. Previous treatment: None.2 Smoking Status Current every day smoker; Exposure to Tobacco Smoke None; Cigarette Smoking Last 365 Days No; Reg Smoking Cessation Counseling No3 entered on: 08/15/18 1Marijuana everyday [id number] alcohol [id number] state she smokes marijuana everyday 11/12/2014 [facility] Family History No Data Provided for This Section Advance Directives No Data Provided for This Section Functional Status No Data Provided for This Section
[2019-01-04] MEDS ORDERED: METOCLOPRAMIDE HCL 10 MG/2ML VIAL IV ONE (12:30)
[2019-01-04] MEDS ORDERED: SODIUM CHLORIDE 0.9% 1000ML 1,000 ML IV ONE (12:30)
[2019-01-04] MEDS ORDERED: DIPHENHYDRAMINE HCL INJ 50 MG/ML VIAL IV ONE (12:30)
[2019-01-04] MEDS ORDERED: HALOPERIDOL LACTATE 5 MG/ML VIAL IM ONE (12:30)
[2019-01-04] MEDS ORDERED: ONDANSETRON HCL INJ 2MG/ML 2ML 2 MG/ML VIAL ONE (12:39)
--- NOTE | 2019-01-04 12:39 | NUR ---
PATIENT ACTIVELY VOMMITING.NOTIFIED DR VELEZ. VERBAL ORDER RECEIVED FOR ZOFRAN 4MG IV ONCE.
[2019-01-04] MEDS ORDERED: ONDANSETRON HCL INJ 2MG/ML 2ML 2 MG/ML VIAL IV STA (12:40)
[2019-01-04 12:42] LABS: BASOPHILS # (AUTO) 0.1 (0.0-0.1); EOSINOPHILS # (AUTO) 0.1 (0.0-0.4); EOSINOPHILS % 0.9 % (0.0-6.0); HEMATOCRIT 43.2 % (34.2-44.1); HEMOGLOBIN 13.9 g/dL (12.0-16.0); LYMPHOCYTES # (AUTO) 3.2 (1.0-3.2); LYMPHOCYTES % 31.5 % (18.0-39.1); MEAN CORPUSCULAR HEMOGLOBIN 26.4 pg (28-32); MEAN CORPUSCULAR HGB CONC 32.2 g/dL (31-35); MEAN CORPUSCULAR VOLUME 82.1 fL (81-99); MONOCYTES % 9.5 % (4.4-11.3); NEUTROPHILS # (AUTO) 5.8 (2.1-6.9); NEUTROPHILS % 56.6 % (38.7-80.0); PLATELET COUNT 214 x10e3/uL (140-360); RED BLOOD COUNT 5.26 x10e6/uL (3.6-5.1); RED CELL DISTRIBUTION WIDTH 18.6 % (11.7-14.4)
--- NOTE | 2019-01-04 12:57 | NUR ---
PATIENT LAYING IN BED WITH EYES CLOSED. SKIN WARM AND DRY. RESP EVEN AND UNLABORED. SKIN WARM AND DRY. NO SIGNS OF ACUTE DISTRESS NOTED AT THIS TIME. FMAILY AT BEDSIDE.
[2019-01-04 13:04] LABS: ALANINE AMINOTRANSFERASE 37 IU/L (0-55); ALBUMIN 3.9 g/dL (3.5-5.0); ALKALINE PHOSPHATASE 98 IU/L (40-150); ANION GAP 17.2 mmol/L (8-16); BLOOD UREA NITROGEN 11 mg/dL (7-26); BUN/CREATININE RATIO 9 (6-25); CALCIUM 9.7 mg/dL (8.4-10.2); CARBON DIOXIDE 22 mmol/L (22-29); CHLORIDE 100 mmol/L (98-107); CREATININE, SERUM 1.25 mg/dL (0.57-1.11); EST GLOMERULAR FILTRATION RATE 57 ML/MIN (60-); GLUCOSE 101 mg/dL (74-118); LIPASE 19 U/L (8-78); POTASSIUM 3.2 mmol/L (3.5-5.1); SODIUM 136 mmol/L (136-145)
--- NOTE | 2019-01-04 13:10 | NUR ---
PT RESTING IN BED, LAYING ON RT SIDE, NON-DIAPHORETIC, BREATHING EVEN/UNLABORED, NAD NOTED. INFORMED OF ORDERS FOR REGLAN, STATES "I DON'T NEED THAT RIGHT NOW, I FELT BETTER WITH THE OTHER MEDICINE AFTER I THREW UP". NO OTHER NEEDS VOICED AT THIS TIME, UPDATED ON PLAN OF CARE, ROOM DARKENED FOR COMFORT, FAMILY AT BEDSIDE.
[2019-01-04 13:23] LABS: AMPHETAMINES SCREEN,URINE NEGATIVE (NEGATIVE); BENZODIAZEPINES SCREEN,URINE NEGATIVE (NEGATIVE); PHENCYCLIDINE SCREEN,URINE NEGATIVE (NEGATIVE)
[2019-01-04 13:24] LABS: BILIRUBIN,URINE MODERATE (NEGATIVE); CLARITY,URINE CLOUDY (CLEAR); COLOR,URINE YELLOW (YELLOW); KETONES,URINE 1+ (NEGATIVE); LEUKOCYTE ESTERASE ,URINE TRACE (NEGATIVE); NITRITE,URINE NEGATIVE (NEGATIVE); PROTEIN,URINE DIPSTICK 1+ (NEGATIVE); URINE UROBILINOGEN 1 mg/dL (0.2 - 1)
[2019-01-04 13:46] LABS: EPITHELIAL CELLS,URINE RARE /LPF; RBC,URINE 0-5 /HPF (0-5); WBC,URINE (MAN) 0-5 /HPF (0-5)
[2019-01-04] MEDS ORDERED: POTASSIUM CHLORIDE 20 MEQ TAB CR PO ONE (14:00)
[2019-01-04] MEDS ORDERED: ZOFRAN4 MG SL (14:10)
--- NOTE | 2019-01-04 14:40 | NUR ---
IVF BOLUS NOT COMPLETE AT THIS TIME, PT WISHES TO FINISH HYDRATION BEFORE D/C, FLUIDS PLACED ON PUMP TO FACILITATE FLOW. NO FURTHER NEEDS VOICED, WILL CONTINUE TO MONITOR.
[2019-01-04 15:24] VITALS: BP 148/83
== END 2019-01-04 15:25 | disposition home or self-care (01) ==
LOC: ER 12:03
DX: R11.2 Nausea with vomiting, unspecified (principal); K29.00 Acute gastritis without bleeding; F12.90 Cannabis use, unspecified, uncomplicated
CPT/HCPCS: 36415; 80053; 80307; 81001; 83690; 84702; 85025; 99283; J1200; J1630; J2405; J7030